=== PATIENT | female | born 1935 | race Caucasian/White ===

== ENCOUNTER 2016-10-01 14:12 | Emergency (ER) | payer MEDICARE ==
[2016-10-01 14:44] VITALS: BP 142/53
--- NOTE | 2016-10-01 15:15 | Cat Scan Report ---
FINAL REPORT EXAM: CT HEAD/BRAIN WO CON HISTORY: headache fall TECHNIQUE: CT of the Head without IV contrast. PRIORS: None currently available. FINDINGS: There is no evidence for acute ischemia. There is no hemorrhage. There is no midline shift. There is no hydrocephalus. There is no mass. Age appropriate davenport-white matter attenuation is noted. There is no calvarial fracture. The temporal bones demonstrate aerated mastoid air cells. The middle ears appear unremarkable. Paranasal sinuses are unremarkable. Globes are intact. IMPRESSION: No acute intracranial findings.
--- NOTE | 2016-10-01 15:21 | Emergency Department Report ---
HPI - General Chief Complaint: Head Injury Time Seen by Provider: 10/01/16 14:40 - HPI HPI: Chief complaint: Tripped and fell, head, chest, knee and hand pain HPI: Patient is an 81-year-old [place] female who tripped over a step fell forward hitting her right knee, her right hand, anterior chest and her forehead. Patient denies loss of consciousness or syncope. Patient's chest pain started after she fell and hurts to palpation and breathing. Patient is not short of breath. Patient does not have any abdominal pain patient is ambulatory. Mode of arrival: EMS Source: Patient and patient's granddaughter Began: Occurred just prior to admission Duration: Pain is continuous Context: See above Quality: Sharp Severity: 8 out of 10 Improved with: Nothing Worsened with: Palpation and movement Associated signs and symptoms: Bruising to the right knee hematoma to the left forehead ED Past Medical Hx - Past Medical History Hx Hypertension: Yes - Surgical History Additional Surgical History: Pacemaker - Medications Home Medications: Home Medications Medication Instructions Recorded Confirmed Last Taken Type traMADol [Ultram 50 MG tab] 50 mg PO Q6HR PRN #20 tablet 10/01/16 Unknown Rx ED Review of Systems ROS: Stated complaint: FALL Other details as noted in HPI Comment: All other systems reviewed and negative Physical Exam - Physical Exam Vital Signs: Vital Signs 10/01/16 10/01/16 14:43 14:46 Pulse Rate 87 Respiratory 18 18 Rate Blood Pressure 142/53 [Left] O2 Sat by Pulse 99 98 Oximetry Physical Exam: GENERAL: The patient is well-developed well-nourished . HEENT: Normocephalic. Small hematoma to the left forehead. Extraocular motions are intact. Patient has moist mucous membranes. NECK: Supple. No meningitic signs are noted. There is no adenopathy noted. Neck nontender CHEST/LUNGS: Clear to auscultation. There is no respiratory distress noted. Anterior chest wall left ribs tender to palpation without crepitus or deformity. HEART/CARDIOVASCULAR: Regular. There is no tachycardia. There is no gallop rub or murmur. ABDOMEN: Abdomen is soft, nontender. Patient has normal bowel sounds. There is no abdominal distention. SKIN: There is no rash. There is no edema. There is no diaphoresis. NEURO: The patient is awake, alert, and oriented. The patient is cooperative. The patient has no focal neurologic deficits. The patient has normal speech. MUSCULOSKELETAL: Right knee prepatellar ecchymosis with small abrasion. Full range of motion to the right knee. Right lateral hand with swelling and tenderness. Full range of motion neurovascular intact. ED Course Vital Signs 10/01/16 10/01/16 14:43 14:46 Pulse Rate 87 Respiratory 18 18 Rate Blood Pressure 142/53 [Left] O2 Sat by Pulse 99 98 Oximetry - Reevaluation(s) Reevaluation #1: 10/01/16 15:21 Patient and family are unclear about her medical history. EMS thought that she was on a blood thinner. Family denies and states she is on blood pressure medications. ED Medical Decision Making - Lab Data Result diagrams: 10/01/16 15:20 10/01/16 15:20 Laboratory Tests 10/01/16 15:20 PT 12.9 INR 0.98 APTT 37.9 H Laboratory Tests 10/01/16 15:20 Troponin T < 0.010 - EKG Data -: EKG Interpreted by Me (electronic atrial pacemaker) Rate: normal - EKG Data When compared to previous EKG there are: previous EKG unavailable - Radiology Data Radiology results: report reviewed (CT of the head and C-spine show no acute process.) interpreted by me: X-ray of patient's right hand, chest x-ray and right knee show no acute fractures. Patient has multiple old healed fractures to the right ribs. Critical care attestation.: If time is entered above; I have spent that time in minutes in the direct care of this critically ill patient, excluding procedure time. ED Disposition Clinical Impression: Minor head injury Qualifiers: Encounter type: initial encounter Qualified Code(s): S00.90XA - Unspecified superficial injury of unspecified part of head, initial encounter Contusion of right knee Qualifiers: Encounter type: initial encounter Qualified Code(s): S80.01XA - Contusion of right knee, initial encounter Contusion of right hand Qualifiers: Encounter type: initial encounter Qualified Code(s): S60.221A - Contusion of right hand, initial encounter Traumatic hematoma of forehead Qualifiers: Encounter type: initial encounter Qualified Code(s): S00.83XA - Contusion of other part of head, initial encounter Chest wall contusion Qualifiers: Encounter type: initial encounter Laterality: unspecified laterality Qualified Code(s): S20.219A - Contusion of unspecified front wall of thorax, initial encounter Disposition: DISCHARGED TO HOME OR SELFCARE Is pt being admited?: No Does the pt Need Aspirin: No Condition: Stable Instructions: Contusion in Adults (ED) Prescriptions: traMADol [Ultram 50 MG tab] 50 mg PO Q6HR PRN #20 tablet PRN Reason: Pain Referrals: PRIMARY CARE,MD [Primary Care Provider] - 3-5 Days Time of Disposition: 16:09
--- NOTE | 2016-10-01 15:21 | Cat Scan Report ---
FINAL REPORT EXAM: CT CERVICAL SPINE WO CON HISTORY: neck pain fall TECHNIQUE: CT of the Cervical Spine without IV contrast. Coronal and sagittal reformatted images were provided. PRIORS: None currently available. FINDINGS: There is no fracture. There is no subluxation. There is no atlantooccipital dislocation. C1-C2: Ynxj-ho-mvgzqnwa arthrosis. Mild prominence of the transverse ligament. There may be some ryrj-mi-djlg articulation. Mild basilar invagination. Mild spinal canal narrowing. Remaining cervical levels do not demonstrate significant canal or foraminal narrowing. Prevertebral soft tissue structures are unremarkable. Heterogenous thyroid gland. Nodules not excluded but evaluation with thyroid ultrasound recommended if clinically indicated. Partially imaged esophagus demonstrates air-fluid level which could represent gastroesophageal reflux. Vascular calcifications. IMPRESSION: No acute fracture.
[2016-10-01 15:33] LABS: Basophils % (Auto) 0.7 % (0.0-1.8); Eosinophils % (Auto) 2.3 % (0.0-4.3); Hematocrit 41.1 % (30.3-42.9); Hemoglobin 13.7 gm/dl (10.1-14.3); Mean Corpuscular HGB Conc 33 % (30-34); Mean Corpuscular Hemoglobin 31 pg (28-32); Mean Corpuscular Volume 93 fl (79-97); Platelet Count 179 K/mm3 (140-440); Red Blood Count 4.44 M/mm3 (3.65-5.03); Red Cell Distribution Width 14.7 % (13.2-15.2); White Blood Count 7.8 K/mm3 (4.5-11.0)
[2016-10-01 15:45] LABS: INR 0.98 (0.87-1.13)
[2016-10-01 15:46] LABS: Partial Thromboplastin Time 37.9 Sec. (24.2-36.6)
[2016-10-01 15:50] LABS: Calcium 8.8 mg/dL (8.4-10.2); Chloride 98.2 mmol/L (98-107); Potassium 4.1 mmol/L (3.6-5.0)
--- NOTE | 2016-10-02 08:37 | XRay Report ---
Right knee: The bones are relatively well-mineralized. There is good alignment and preservation of the knee joint spaces and articular margins. No joint effusion or focal swelling. Scattered mild vascular calcification noted. Impression: No acute findings. RIGHT HAND: The bony architecture is intact. Bony alignment is normal. No soft tissue abnormalities are seen. The joint spaces appear preserved. IMPRESSION: Normal right hand.
--- NOTE | 2016-10-02 09:25 | XRay Report ---
RIGHT HAND, THREE VIEWS HISTORY: Right hand pain after fall. FINDINGS: Mild osteopenia. No acute osseous injury or dislocation is appreciated. There are mild diffuse osteoarthritic changes. The soft tissues are unremarkable. IMPRESSION: No acute injury is identified.
== END 2016-10-01 17:03 | disposition home or self-care (01) ==
LOC: ED 14:12
DX: S09.90XA Unspecified injury of head, initial encounter (principal); S80.01XA Contusion of right knee, initial encounter; S60.221A Contusion of right hand, initial encounter; S00.83XA Contusion of other part of head, initial encounter; S20.219A Contusion of unspecified front wall of thorax, initial encounter; I10 Essential (primary) hypertension; Z95.0 Presence of cardiac pacemaker; W01.198A Fall on same level from slipping, tripping and stumbling with subsequent striking against other object, initial encounter; Y93.89 Activity, other specified; Y99.8 Other external cause status; Y92.89 Other specified places as the place of occurrence of the external cause
CPT/HCPCS: 36415; 70450; 71020; 72125; 80048; 84484; 85025; 85610; 85730; 93005; 93010

== ENCOUNTER 2017-11-24 11:36 | Inpatient (IN) | payer MEDICAID, MEDICARE ==
[2017-11-24 12:22] LABS: Basophils % (Auto) 0.3 % (0.0-1.8); Eosinophils # (Auto) 0.1 K/mm3 (0.0-0.4); Eosinophils % (Auto) 1.4 % (0.0-4.3); Hematocrit 38.9 % (30.3-42.9); Hemoglobin 13.4 gm/dl (10.1-14.3); Lymphocytes # (Auto) 1.3 K/mm3 (1.2-5.4); Lymphocytes % (Auto) 15.9 % (13.4-35.0); Mean Corpuscular HGB Conc 35 % (30-34); Mean Corpuscular Hemoglobin 32 pg (28-32); Mean Corpuscular Volume 92 fl (79-97); Monocytes # (Auto) 0.7 K/mm3 (0.0-0.8); Monocytes % (Auto) 8.5 % (0.0-7.3); Platelet Count 210 K/mm3 (140-440); Red Blood Count 4.25 M/mm3 (3.65-5.03); Red Cell Distribution Width 15.1 % (13.2-15.2)
--- NOTE | 2017-11-24 12:29 | Emergency Department Report ---
HPI - General Chief Complaint: Dizziness Time Seen by Provider: 11/24/17 11:55 - HPI HPI: 82-year-old female presents to the emergency department with her, daughter at bedside, from home with complaint of a few days of shortness of breath, "her back feels cold" with some discomfort, generalized dizziness and weakness, blurry vision and some chest tightness. She has a history of HTN and has a pacemaker. She has a customer account coordinator that they believe is [facility]. She did not take anything for her symptoms prior to presentation. No recent travel or sick contacts at home. She is not a tobacco smoker and denies any illicit drug usage. ED Past Medical Hx - Past Medical History Hx Hypertension: Yes - Surgical History Additional Surgical History: Pacemaker - Social History Smoking Status: Never Smoker Substance Use Type: None - Medications Home Medications: Home Medications Medication Instructions Recorded Confirmed Last Taken Type traMADol [Ultram 50 MG tab] 50 mg PO Q6HR PRN #20 tablet 10/01/16 Unknown Rx ED Review of Systems ROS: Stated complaint: BACK PAIN Other details as noted in HPI Comment: All other systems reviewed and negative Constitutional: denies: chills, fever Eyes: vision change (blurry vision). denies: eye pain, eye discharge ENT: denies: ear pain, throat pain Respiratory: shortness of breath. denies: wheezing Cardiovascular: edema. denies: palpitations Gastrointestinal: denies: abdominal pain, nausea, diarrhea Genitourinary: denies: urgency, dysuria, discharge Musculoskeletal: denies: back pain, joint swelling, arthralgia Skin: denies: rash, lesions Neurological: weakness. denies: headache Physical Exam - Physical Exam Vital Signs: Vital Signs 11/24/17 11/24/17 11/24/17 11:50 12:10 12:11 Temperature 98.0 F 98.0 F Pulse Rate 64 63 Respiratory 18 20 20 Rate Blood Pressure 127/52 Blood Pressure 127/52 [Left] O2 Sat by Pulse 93 93 Oximetry Physical Exam: GENERAL: The patient is well-developed well-nourished. HENT: Normocephalic. Atraumatic. Patient has moist mucous membranes. EYES: Extraocular motions are intact. Pupils equal reactive to light bilaterally. No nystagmus. NECK: Supple. Trachea is midline. CHEST/LUNGS: Clear to auscultation. There is no respiratory distress noted. HEART/CARDIOVASCULAR: Regular. There is no tachycardia. There is no murmur. ABDOMEN: Abdomen is soft, nontender. Patient has normal bowel sounds. There is no abdominal distention. SKIN: Skin is warm and dry. NEURO: The patient is awake, alert. The patient is cooperative. The patient has no focal neurologic deficits. The patient has normal speech. MUSCULOSKELETAL: There is no tenderness or deformity. There is no evidence of acute injury. ED Course Vital Signs 11/24/17 11/24/17 11/24/17 11:50 12:10 12:11 Temperature 98.0 F 98.0 F Pulse Rate 64 63 Respiratory 18 20 20 Rate Blood Pressure 127/52 Blood Pressure 127/52 [Left] O2 Sat by Pulse 93 93 Oximetry ED Medical Decision Making - Lab Data Result diagrams: 11/24/17 12:15 11/24/17 17:12 - EKG Data -: EKG Interpreted by Me - EKG Data When compared to previous EKG there are: no significant change Interpretation: unchanged when compared t, other (atrial paced complexes, prolonged CO interval) - Radiology Data Radiology results: report reviewed, image reviewed interpreted by me: Chest x-ray does not show any acute process. There are no pleural effusions, obvious pneumonia and there is no pneumothorax. CT HEAD WITHOUT CONTRAST: 11/24/17 11:36:00 CLINICAL: Dizziness. TECHNIQUE: 2.5-mm noncontrast scans. COMPARISON:10/01/16 FINDINGS: The frontal lobe sulci are disproportionately large compared to the rest of the brain but this is unchanged compared to the prior exam.No suspicious hypodensity. Bilateral globus pallidus nine calcifications. No mass or mass effect. No hemorrhage, edema or extra-axial collection. The sinuses are clear. Normal orbits and soft tissues. The calvarium and skull base are intact. IMPRESSION: No acute change. Stable frontal lobe cortical atrophy. Transcribed By: REF Dictated By: FREEDOM JONES MD Electronically Authenticated By: FREEDOM JONES MD Signed Date/Time: 11/24/17 9765 - Medical Decision Making Patient came in with some non-specific complaints of dizziness, lightheadedness and generalized weakness. She also has some blurry vision, chest tightness. EKG is paced and does not show any ST elevation [place]. Her labs show a hyponatremia is significant at 115 and may be the source of many of her symptoms. Patient was started on IV fluid resuscitation. CT of the head did not show any bleed, shift, mass or any acute process. Patient will be admitted to the hospital for further evaluation and treatment is benign except for admission by the hospitalist, Dr. Davis. - Differential Diagnosis [place], CVA, TIA, Hyponatremia, hypoglycemia Critical Care Time: No Critical care attestation.: If time is entered above; I have spent that time in minutes in the direct care of this critically ill patient, excluding procedure time. ED Disposition Clinical Impression: Hyponatremia syndrome, Dizziness, Electrolyte disorder Hypothyroid Qualifiers: Hypothyroidism type: acquired Qualified Code(s): E03.9 - Hypothyroidism, unspecified Disposition: 09 OP ADMIT IP TO THIS HOSP Is pt being admited?: Yes Condition: Fair Time of Disposition: 18:46
[2017-11-24 12:33] LABS: INR 0.96 (0.87-1.13)
[2017-11-24 12:34] LABS: Partial Thromboplastin Time 34.6 Sec. (24.2-36.6)
[2017-11-24 12:55] LABS: Alanine Aminotransferase 23 units/L (7-56); Albumin 3.8 g/dL (3.9-5); BUN/Creatinine Ratio 22; Blood Urea Nitrogen 22 mg/dL (7-17); Calcium 8.4 mg/dL (8.4-10.2); Hemolysis Index 5
--- NOTE | 2017-11-24 13:00 | Cat Scan Report ---
CT HEAD WITHOUT CONTRAST: 11/24/17 11:36:00 CLINICAL: Dizziness. TECHNIQUE: 2.5-mm noncontrast scans. COMPARISON:10/01/16 FINDINGS: The frontal lobe sulci are disproportionately large compared to the rest of the brain but this is unchanged compared to the prior exam.No suspicious hypodensity. Bilateral globus pallidus nine calcifications. No mass or mass effect. No hemorrhage, edema or extra-axial collection. The sinuses are clear. Normal orbits and soft tissues. The calvarium and skull base are intact. IMPRESSION: No acute change. Stable frontal lobe cortical atrophy.
--- NOTE | 2017-11-24 13:18 | History and Physical Report ---
History of Present Illness Chief complaint: She feels weak, and short of breath History of present illness: 82 YO Female with HTN, Cardiomyopathy S/P Pacemaker placement presents to ED for evaluation. Pt is unable to speak Lithuanian, but her daughter is at bedside, and serves as staffing coordinator. As per daughter, the patient has experienced shortness of breath, bilateral leg swelling, and generalized weakness over the past 3 days with persistent symptoms over the same time frame. Pt acknowledges Orthopnea/PND. Pt denies fever, chills, CP, Palpitations, NVD, productive cough , BRBPR, unintentional weight loss, night sweats, trauma, syncope, recent ill contacts, prolonged travel/immobility, individual/family history of DVT/PE. Pt seen and evaluated in ED and found to have symptoms consistent with Acute CHF Decompensation with concomitant respiratory failure. Pt admitted to telemetry, cardiology consulted in ED. Past History Past Medical History: hypertension Past Surgical History: Other (Pacemaker) Social history: . denies: smoking, alcohol abuse, prescription drug abuse Family history: hypertension Medications and Allergies Home Medications Medication Instructions Recorded Confirmed Last Taken Type traMADol [Ultram 50 MG tab] 50 mg PO Q6HR PRN #20 tablet 10/01/16 Unknown Rx Review of Systems Constitutional: no weight loss, no weight gain, no fever, no chills Ears, nose, mouth and throat: no ear pain, no ear discharge, no tinnitis, no decreased hearing, no nose pain, no nasal congestion Breasts: no change in shape, no swelling, no mass Cardiovascular: orthopnea, shortness of breath, paroxysmal nocturnal dyspnea, high blood pressure, leg edema, no chest pain, no palpitations, no rapid/ irregular heart beat, no syncope Respiratory: no cough, no cough with sputum, no excessive sputum, no hemoptysis Gastrointestinal: no abdominal pain, no nausea, no vomiting, no diarrhea Genitourinary Female: no pelvic pain, no flank pain, no menorrhagia, no dysuria , no urinary frequency, no urgency Rectal: no pain, no incontinence, no bleeding Musculoskeletal: no neck stiffness, no neck pain, no shooting arm pain, no arm numbness/tingling, no low back pain, no shooting leg pain, no leg numbness/ tingling Integumentary: no rash, no pruritis, no redness, no sores, no wounds, no jaundice, no boils Neurological: no transient paralysis, no paralysis, no weakness, no parathesias , no numbness, no tingling, no seizures, no syncope Psychiatric: no anxiety, no memory loss, no change in sleep habits, no insomnia , no hypersomnia, no change in appetite, no change in libido, no suicidal ideation Endocrine: no cold intolerance, no heat intolerance, no polyphagia, no excessive thirst, no polydipsia, no polyuria, no nocturia, no excessive sweating Hematologic/Lymphatic: no easy bruising, no easy bleeding, no lymphadenopathy, no lymphedema Allergic/Immunologic: no urticaria, no allergic rhinitis, no wheezing Exam - Constitutional Vitals: Temp Pulse Resp BP Pulse Ox 98.0 F 63 20 127/52 93 11/24/17 12:10 11/24/17 12:10 11/24/17 12:11 11/24/17 12:10 11/24/17 12:10 General appearance: Present: mild distress - EENT Eyes: Present: PERRL ENT: hearing intact, clear oral mucosa - Neck Neck: Present: supple, normal ROM - Respiratory Respiratory effort: labored Respiratory: bilateral: diminished, rales - Cardiovascular Heart Sounds: Present: S1 & S2. Absent: rub, click - Extremities Extremities: pulses symmetrical, No edema Extremity abnormal: edema Peripheral Pulses: within normal limits - Abdominal General gastrointestinal: Present: soft, non-tender, non-distended, normal bowel sounds Female genitourinary: Present: normal - Integumentary Integumentary: Present: clear, warm, dry - Musculoskeletal Musculoskeletal: generalized weakness - Psychiatric Psychiatric: appropriate mood/affect, intact judgment & insight - Neurologic Neurologic: CNII-XII intact, moves all extremities Results - Labs CBC & Chem 7: 11/24/17 12:15 11/24/17 12:15 Labs: Abnormal lab results 11/24/17 11/24/17 11/24/17 Range/Units 12:15 12:15 12:15 MCHC 35 H (30-34) % Boyd % (Auto) 8.5 H (0.0-7.3) % Seg Neutrophils % 73.9 H (40.0-70.0) % Sodium 115 L* (137-145) mmol/L Potassium 5.1 H (3.6-5.0) mmol/L Chloride 82.3 L (98-107) mmol/L Carbon Dioxide 18 L (22-30) mmol/L BUN 22 H (7-17) mg/dL Glucose 179 H (65-100) mg/dL NT-Pro-B Natriuret Pep 940.9 H (0-900) pg/mL Albumin 3.8 L (3.9-5) g/dL TSH 6.440 H (0.270-4.200) mlU/mL Assessment and Plan - Patient Problems (1) CHF (congestive heart failure) Current Visit: Yes Status: Acute Qualifiers: Heart failure type: systolic Heart failure chronicity: acute Qualified Code(s): I50.21 - Acute systolic (congestive) heart failure Plan to address problem: Admit to telemetry, Strict I/O, monitor uop q shift, daily weight, D dimer, Chest X ray, supplemental oxygen, diuresis, afterload reduction, cardiology consulted in ED, Echo. (2) Hypothyroidism Current Visit: Yes Status: Acute Qualifiers: Hypothyroidism type: acquired Qualified Code(s): E03.9 - Hypothyroidism, unspecified Plan to address problem: Synthroid therapy, first dose given in ED, (3) Metabolic acidosis Current Visit: Yes Status: Acute Plan to address problem: IVF resuscitation therapy, repeat bmp (4) Acute respiratory failure Current Visit: Yes Status: Acute Qualifiers: Respiratory failure complication: hypoxia Qualified Code(s): J96.01 - Acute respiratory failure with hypoxia Plan to address problem: Supplemental oxygen, Chest X ray, nebulizer therapy, incentive spirometry, pulmonary toilet, (5) DVT prophylaxis Current Visit: Yes Status: Acute
[2017-11-24] MEDS ORDERED: SODIUM CHLORIDE FLUSH SYRINGE 10 ML IV PRN (13:20)
[2017-11-24] MEDS ORDERED: TYLENOL PO PRN (13:20)
[2017-11-24] MEDS ORDERED: PROVENTIL IH PRN (13:20)
[2017-11-24] MEDS ORDERED: ZOFRAN IV PRN (13:20)
--- NOTE | 2017-11-24 13:20 | XRay Report ---
AP CHEST : 11/24/17 11:36:00 CLINICAL: Chest pain. COMPARISON:10/01/16 FINDINGS: Stable cardiomegaly with pacer leads in heart.Normal pulmonary vessels. The lungs are normally expanded and clear. Blunting costophrenic angles are unchanged compared to the prior exam. Old right rib fractures are unchanged. IMPRESSION: Mild cardiomegaly but no CHF. No pneumonia.
[2017-11-24] MEDS: LASIX IV SCH (18:42)
[2017-11-24] MEDS: SODIUM CHLORIDE FLUSH SYRINGE 10 ML IV SCH (21:32)
[2017-11-25] MEDS: LASIX IV SCH ×2 (05:50→17:17)
[2017-11-25] MEDS: SYNTHROID 112 MCG, SYNTHROID 25 MCG PO SCH (05:59)
[2017-11-25] MEDS: SODIUM CHLORIDE FLUSH SYRINGE 10 ML IV SCH ×2 (10:38→21:32)
--- NOTE | 2017-11-25 11:40 | Progress Note ---
Assessment and Plan Assessment and plan: Hyponatremia. Etiology is unknown. Consider hypertonic saline versus Sam[place]a. Patient does have a history of CHF. Nephrology consultation. Chest pain. We will plan for Lexiscan in a.m. Hypertension. Resume at hypertensive medications. Cardiomyopathy status post pacemaker. Continue per cardiology. History of CHF. Follow-up echocardiogram. Appears compensated. Patient with only mildly elevated BNP and negative chest x-ray Hypothyroidism. Resume Synthroid. Consider increasing dose given the elevated TSH. History Interval history: No new issues overnight. Hospitalist Physical - Constitutional Vitals: Temp Pulse Resp BP Pulse Ox 98 F 70 20 100/68 93 11/25/17 05:04 11/25/17 08:35 11/25/17 05:04 11/25/17 05:04 11/25/17 05:04 General appearance: Present: no acute distress - EENT Eyes: Present: PERRL, EOM intact ENT: hearing intact, clear oral mucosa, dentition normal - Neck Neck: Present: supple, normal ROM - Respiratory Respiratory effort: normal Respiratory: bilateral: CTA - Cardiovascular Rhythm: regular Heart Sounds: Present: S1 & S2. Absent: gallop, rub - Extremities Extremities: no ischemia, No edema, Full ROM - Abdominal General gastrointestinal: soft, non-tender, non-distended, normal bowel sounds - Integumentary Integumentary: Present: clear, warm, dry - Neurologic Neurologic: CNII-XII intact, moves all extremities Results - Labs CBC & Chem 7: 11/24/17 12:15 11/24/17 17:12 Labs: Laboratory Last Values WBC 8.4 K/mm3 (4.5-11.0) 11/24/17 12:15 RBC 4.25 M/mm3 (3.65-5.03) 11/24/17 12:15 Hgb 13.4 gm/dl (10.1-14.3) 11/24/17 12:15 Hct 38.9 % (30.3-42.9) 11/24/17 12:15 MCV 92 fl (79-97) 11/24/17 12:15 MCH 32 pg (28-32) 11/24/17 12:15 MCHC 35 % (30-34) H 11/24/17 12:15 RDW 15.1 % (13.2-15.2) 11/24/17 12:15 Plt Count 210 K/mm3 (140-440) 11/24/17 12:15 Lymph % (Auto) 15.9 % (13.4-35.0) 11/24/17 12:15 Murray % (Auto) 8.5 % (0.0-7.3) H 11/24/17 12:15 Eos % (Auto) 1.4 % (0.0-4.3) 11/24/17 12:15 Baso % (Auto) 0.3 % (0.0-1.8) 11/24/17 12:15 Lymph # 1.3 K/mm3 (1.2-5.4) 11/24/17 12:15 Murray # 0.7 K/mm3 (0.0-0.8) 11/24/17 12:15 Eos # 0.1 K/mm3 (0.0-0.4) 11/24/17 12:15 Baso # 0.0 K/mm3 (0.0-0.1) 11/24/17 12:15 Seg Neutrophils % 73.9 % (40.0-70.0) H 11/24/17 12:15 Seg Neutrophils # 6.2 K/mm3 (1.8-7.7) 11/24/17 12:15 PT 13.3 Sec. (12.2-14.9) 11/24/17 12:15 INR 0.96 (0.87-1.13) 11/24/17 12:15 APTT 34.6 Sec. (24.2-36.6) 11/24/17 12:15 D-Dimer 200.14 ng/mlDDU (0-234) 11/24/17 12:15 Sodium 115 mmol/L (137-145) L* 11/24/17 17:12 Potassium 5.1 mmol/L (3.6-5.0) H 11/24/17 12:15 Chloride 82.3 mmol/L (98-107) L 11/24/17 12:15 Carbon Dioxide 18 mmol/L (22-30) L 11/24/17 12:15 Anion Gap 20 mmol/L 11/24/17 12:15 BUN 22 mg/dL (7-17) H 11/24/17 12:15 Creatinine 1.0 mg/dL (0.7-1.2) 11/24/17 12:15 Estimated GFR 53 ml/min 11/24/17 12:15 BUN/Creatinine Ratio 22 % 11/24/17 12:15 Glucose 179 mg/dL (65-100) H 11/24/17 12:15 Calcium 8.4 mg/dL (8.4-10.2) 11/24/17 12:15 Total Bilirubin 0.50 mg/dL (0.1-1.2) 11/24/17 12:15 AST 26 units/L (5-40) 11/24/17 12:15 ALT 23 units/L (7-56) 11/24/17 12:15 Alkaline Phosphatase 95 units/L (35-129) 11/24/17 12:15 Troponin T < 0.010 ng/mL (0.00-0.029) 11/24/17 17:07 NT-Pro-B Natriuret Pep 940.9 pg/mL (0-900) H 11/24/17 12:15 Total Protein 7.4 g/dL (6.3-8.2) 11/24/17 12:15 Albumin 3.8 g/dL (3.9-5) L 11/24/17 12:15 Albumin/Globulin Ratio 1.1 % 11/24/17 12:15 TSH 6.440 mlU/mL (0.270-4.200) H 11/24/17 12:15
--- NOTE | 2017-11-25 13:40 | Consultation ---
History of Present Illness Consult date: 11/25/17 Consult reason: shortness of breath History of present illness: The patient is an 82-year-old woman who presented to the hospital with constitutional symptoms of dizziness, weakness, shortness of breath, and found on laboratory exam with severe hyponatremia, sodium 115. Previous laboratory exam a year ago showed her sodium was 134. Cardiac consultation was requested for evaluation of her shortness of breath and possible "CHF". Patient is currently comfortable on bedrest on the telemetry floor, denied chest pain, palpitations or edema. Cardiac history is notable for a poorly documented, remote history of coronary artery disease. She does have a dual- chamber pacemaker in situ. ECG on this presentation is a normal sinus rhythm with first-degree AV block, otherwise normal ECG. Chest x-ray reveals a normal cardiac silhouette, blunting of the costophrenic angles, but no interstitial edema and no heart failure. Past History Past Medical History: hypertension Past Surgical History: Other (Pacemaker) Social history: . denies: smoking, alcohol abuse, prescription drug abuse Family history: hypertension Medications and Allergies Allergies Allergy/AdvReac Type Severity Reaction Status Date / Time No Known Allergies Allergy Unverified 11/24/17 14:13 Home Medications Medication Instructions Recorded Confirmed Last Taken Type Amiodarone [Cordarone 200 MG TAB] 200 mg PO DAILY 11/25/17 11/25/17 Unknown History AtorvaSTATin [Lipitor] 40 mg PO QHS 11/25/17 11/25/17 Unknown History Carvedilol [Coreg] 25 mg PO DAILY 11/25/17 11/25/17 Unknown History Dabigatran [Pradaxa] 150 mg PO BID 11/25/17 11/25/17 Unknown History Levothyroxine [Synthroid] 50 mcg PO QAM 11/25/17 11/25/17 Unknown History Meclizine [Antivert] 12.5 mg PO TID PRN 11/25/17 11/25/17 Unknown History NIFEdipine [Nifedipine ER] 60 mg PO DAILY 11/25/17 11/25/17 Unknown History Valsartan [Diovan] 320 mg PO QDAY 11/25/17 11/25/17 Unknown History cloNIDine [Catapres] 0.1 mg PO PRN PRN 11/25/17 11/25/17 Unknown History Active Meds: Active Medications Acetaminophen (Tylenol) 650 mg PO Q4H PRN PRN Reason: Pain MILD(1-3)/Fever >100.5/SEO Albuterol (Proventil) 2.5 mg IH Q4H PRN PRN Reason: Shortness Of Breath Furosemide (Lasix) 20 mg IV BID@0600,1800 [facility] Last Admin: 11/25/17 05:50 Dose: 20 mg Levothyroxine Sodium 112 mcg/ (Levothyroxine Sodium 25 mcg) 137 mcg PO DAILY@ 0600 [facility] Last Admin: 11/25/17 05:59 Dose: 137 mcg Ondansetron HCl (Zofran) 4 mg IV Q8H PRN PRN Reason: Nausea And Vomiting Sodium Chloride (Sodium Chloride Flush Syringe 10 Ml) 10 ml IV BID [facility] Last Admin: 11/25/17 10:38 Dose: 10 ml Sodium Chloride (Sodium Chloride Flush Syringe 10 Ml) 10 ml IV PRN PRN PRN Reason: LINE FLUSH Review of Systems Cardiovascular: shortness of breath, no chest pain, no orthopnea, no palpitations, no rapid/irregular heart beat, no edema, no syncope, no lightheadedness Physical Examination Vital Signs Temp Pulse Resp BP Pulse Ox 98.0 F 64 18 127/52 93 11/24/17 11:50 11/24/17 11:50 11/24/17 11:50 11/24/17 11:50 11/24/17 11:50 General appearance: no acute distress HEENT: Positive: PERRL Neck: Positive: neck supple Cardiac: Positive: Reg Rate and Rhythm Lungs: Positive: clear to auscultation Neuro: Positive: Grossly Intact Abdomen: Positive: Soft Female genitourinary: deferred Skin: Positive: Clear Extremities: Absent: edema Results 11/24/17 12:15 11/24/17 17:12 Comprehensive Metabolic Panel 11/24/17 Range/Units 17:12 Sodium 115 L* (137-145) mmol/L EKG interpretations - Telemetry EKG Rhythm: Sinus Rhythm Assessment and Plan - Patient Problems (1) Hyponatremia Current Visit: Yes Status: Acute Plan to address problem: Patient presented with constitutional symptoms associated with severe hyponatremia, sodium 115. We will defer workup of the presenting complaint to internal medicine and nephrology. There are no significant cardiac issues at this time that warrant further cardiac workup. We will follow intermittently.
--- NOTE | 2017-11-25 13:46 | Consultation ---
History of Present Illness - Reason for Consult Consult date: 11/25/17 hyponatremia Requesting physician: MARIA FERNANDA SENIOR - History of Present Illness 82-year-old female presents to the emergency department with her, daughter at bedside, from home with complaint of a few days of shortness of breath, "her back feels cold" with some discomfort, generalized dizziness and weakness, blurry vision and some chest tightness. She has a history of HTN and has a pacemaker. She has a color maker dyer that they believe is [facility]. She did not take anything for her symptoms prior to presentation. No recent travel or sick contacts at home. She is not a tobacco smoker and denies any illicit drug usage. She does admit to drinking a lot of water. Also complains of feeling somewhat weak Past History Past Medical History: hypertension Past Surgical History: Other (Pacemaker) Social history: . denies: smoking, alcohol abuse, prescription drug abuse Family history: hypertension Medications and Allergies Allergies Allergy/AdvReac Type Severity Reaction Status Date / Time No Known Allergies Allergy Unverified 11/24/17 14:13 Home Medications Medication Instructions Recorded Confirmed Last Taken Type Amiodarone [Cordarone 200 MG TAB] 200 mg PO DAILY 11/25/17 11/25/17 Unknown History AtorvaSTATin [Lipitor] 40 mg PO QHS 11/25/17 11/25/17 Unknown History Carvedilol [Coreg] 25 mg PO DAILY 11/25/17 11/25/17 Unknown History Dabigatran [Pradaxa] 150 mg PO BID 11/25/17 11/25/17 Unknown History Levothyroxine [Synthroid] 50 mcg PO QAM 11/25/17 11/25/17 Unknown History Meclizine [Antivert] 12.5 mg PO TID PRN 11/25/17 11/25/17 Unknown History NIFEdipine [Nifedipine ER] 60 mg PO DAILY 11/25/17 11/25/17 Unknown History Valsartan [Diovan] 320 mg PO QDAY 11/25/17 11/25/17 Unknown History cloNIDine [Catapres] 0.1 mg PO PRN PRN 11/25/17 11/25/17 Unknown History Active Meds: Active Medications Acetaminophen (Tylenol) 650 mg PO Q4H PRN PRN Reason: Pain MILD(1-3)/Fever >100.5/SEO Albuterol (Proventil) 2.5 mg IH Q4H PRN PRN Reason: Shortness Of Breath Furosemide (Lasix) 20 mg IV BID@0600,1800 [facility] Last Admin: 11/25/17 05:50 Dose: 20 mg Levothyroxine Sodium 112 mcg/ (Levothyroxine Sodium 25 mcg) 137 mcg PO DAILY@ 0600 [facility] Last Admin: 11/25/17 05:59 Dose: 137 mcg Ondansetron HCl (Zofran) 4 mg IV Q8H PRN PRN Reason: Nausea And Vomiting Sodium Chloride (Sodium Chloride Flush Syringe 10 Ml) 10 ml IV BID [facility] Last Admin: 11/25/17 10:38 Dose: 10 ml Sodium Chloride (Sodium Chloride Flush Syringe 10 Ml) 10 ml IV PRN PRN PRN Reason: LINE FLUSH Review of Systems All systems: negative (except as noted above) Exam - Vital Signs Vital signs: Vital Signs Temp Pulse Resp BP Pulse Ox 98.0 F 64 18 127/52 93 11/24/17 11:50 11/24/17 11:50 11/24/17 11:50 11/24/17 11:50 11/24/17 11:50 - General Appearance General appearance: well-developed, well-nourished, appears stated age EENT: PERRL, mucous membranes moist Neck: Present: neck supple, trachea midline. Absent: JVD/HJR, Masses Respiratory: Clear to Ascultation Heart: regular, normal heart rate, S1S2, no murmurs Gastrointestinal: Present: normal, normoactive bowel sounds Integumentary: no rash, other (trace edema ) Results - Lab Results 11/24/17 12:15 11/24/17 17:12 Most recent lab results Calcium 8.4 mg/dL (8.4-10.2) 11/24/17 12:15 Assessment and Plan Impression * Severe hyponatremia * Hypertension * Coronary artery disease * Hyperlipidemia * Hypothyroidism Recommendations * Shall do hyponatremia workup, including TSH, uric acid as well as urine sodium and urine osmolality * Administer 3% saline at 30 mL an hour for 10 hours * Restrict free water intake * She may need Samsca as well * Monitor her serum sodium closely * Discussed with patient's daughter at bedside * Thank you very much for the consultation. Shall follow along with you
[2017-11-25] MEDS ORDERED: NACL 3% 500 ML IV ONE (13:48)
[2017-11-25 18:19] LABS: Calcium 8.3 mg/dL (8.4-10.2)
--- NOTE | 2017-11-25 21:35 | Event Note ---
Date: 11/25/17 repeat Na 130 . Stop 3% saline . Spoke with patient's nurse . Monitor serum sodium closely . Patient is currently asymptomatic
[2017-11-26 01:39] LABS: Calcium 7.8 mg/dL (8.4-10.2)
[2017-11-26 05:43] LABS: Basophils % (Auto) 0.5 % (0.0-1.8); Eosinophils # (Auto) 0.1 K/mm3 (0.0-0.4); Eosinophils % (Auto) 2.1 % (0.0-4.3); Hematocrit 38.5 % (30.3-42.9); Hemoglobin 13.3 gm/dl (10.1-14.3); Lymphocytes # (Auto) 1.4 K/mm3 (1.2-5.4); Lymphocytes % (Auto) 20.5 % (13.4-35.0); Mean Corpuscular HGB Conc 35 % (30-34); Mean Corpuscular Hemoglobin 32 pg (28-32); Mean Corpuscular Volume 93 fl (79-97); Monocytes # (Auto) 1.1 K/mm3 (0.0-0.8); Monocytes % (Auto) 15.9 % (0.0-7.3); Platelet Count 221 K/mm3 (140-440); Red Blood Count 4.16 M/mm3 (3.65-5.03); Red Cell Distribution Width 15.9 % (13.2-15.2)
[2017-11-26] MEDS: LASIX IV SCH ×2 (05:46→18:04)
[2017-11-26] MEDS: SYNTHROID 112 MCG, SYNTHROID 25 MCG PO SCH (05:46)
[2017-11-26 06:05] LABS: BUN/Creatinine Ratio 20; Blood Urea Nitrogen 16 mg/dL (7-17); Calcium 8.1 mg/dL (8.4-10.2); Hemolysis Index 182
[2017-11-26 08:38] LABS: Calcium 8.6 mg/dL (8.4-10.2)
[2017-11-26] MEDS ORDERED: LEXISCAN IV ONE ×2 (10:14→10:18)
[2017-11-26] MEDS ORDERED: ANTIVERT PO PRN (11:29)
[2017-11-26] MEDS ORDERED: CATAPRES PO PRN (11:29)
--- NOTE | 2017-11-26 11:31 | Progress Note ---
Assessment and Plan Assessment and plan: Hyponatremia. Etiology is unknown. Consider hypertonic saline versus Samsca. Patient does have a history of CHF. Nephrology consultation. Chest pain. Await Lexiscan results. Hypertension. Resume at hypertensive medications. Cardiomyopathy status post pacemaker. Continue per cardiology. History of CHF. Follow-up echocardiogram. Appears compensated. Patient with only mildly elevated BNP and negative chest x-ray. Cardiology feels that there are no significant cardiac issues at this time to warrant treatment or workup. Hypothyroidism. Continue Synthroid. Disposition. Likely discharge in a.m. History Interval history: No new issues overnight. Hospitalist Physical - Constitutional Vitals: Temp Pulse Resp BP Pulse Ox 97.8 F 77 18 139/79 98 11/26/17 08:07 11/26/17 10:00 11/26/17 10:00 11/26/17 08:07 11/26/17 10:00 General appearance: Present: no acute distress - EENT Eyes: Present: PERRL, EOM intact ENT: hearing intact, clear oral mucosa, dentition normal - Neck Neck: Present: supple, normal ROM - Respiratory Respiratory effort: normal Respiratory: bilateral: CTA - Cardiovascular Rhythm: regular Heart Sounds: Present: S1 & S2. Absent: gallop, rub - Extremities Extremities: no ischemia, No edema, Full ROM - Abdominal General gastrointestinal: soft, non-tender, non-distended, normal bowel sounds - Integumentary Integumentary: Present: clear, warm, dry - Neurologic Neurologic: CNII-XII intact, moves all extremities Results - Labs CBC & Chem 7: 11/26/17 04:59 11/26/17 07:25 Labs: Laboratory Last Values WBC 6.8 K/mm3 (4.5-11.0) 11/26/17 04:59 RBC 4.16 M/mm3 (3.65-5.03) 11/26/17 04:59 Hgb 13.3 gm/dl (10.1-14.3) 11/26/17 04:59 Hct 38.5 % (30.3-42.9) 11/26/17 04:59 MCV 93 fl (79-97) 11/26/17 04:59 MCH 32 pg (28-32) 11/26/17 04:59 MCHC 35 % (30-34) H 11/26/17 04:59 RDW 15.9 % (13.2-15.2) H 11/26/17 04:59 Plt Count 221 K/mm3 (140-440) 11/26/17 04:59 Lymph % (Auto) 20.5 % (13.4-35.0) 11/26/17 04:59 Scott % (Auto) 15.9 % (0.0-7.3) H 11/26/17 04:59 Eos % (Auto) 2.1 % (0.0-4.3) 11/26/17 04:59 Baso % (Auto) 0.5 % (0.0-1.8) 11/26/17 04:59 Lymph # 1.4 K/mm3 (1.2-5.4) 11/26/17 04:59 Scott # 1.1 K/mm3 (0.0-0.8) H 11/26/17 04:59 Eos # 0.1 K/mm3 (0.0-0.4) 11/26/17 04:59 Baso # 0.0 K/mm3 (0.0-0.1) 11/26/17 04:59 Seg Neutrophils % 61.0 % (40.0-70.0) 11/26/17 04:59 Seg Neutrophils # 4.2 K/mm3 (1.8-7.7) 11/26/17 04:59 PT 13.3 Sec. (12.2-14.9) 11/24/17 12:15 INR 0.96 (0.87-1.13) 11/24/17 12:15 APTT 34.6 Sec. (24.2-36.6) 11/24/17 12:15 D-Dimer 200.14 ng/mlDDU (0-234) 11/24/17 12:15 Sodium 134 mmol/L (137-145) L 11/26/17 07:25 Potassium 4.8 mmol/L (3.6-5.0) 11/26/17 07:25 Chloride 96.0 mmol/L (98-107) L 11/26/17 07:25 Carbon Dioxide 26 mmol/L (22-30) 11/26/17 07:25 Anion Gap 17 mmol/L 11/26/17 07:25 BUN 15 mg/dL (7-17) 11/26/17 07:25 Creatinine 0.9 mg/dL (0.7-1.2) 11/26/17 07:25 Estimated GFR 60 ml/min 11/26/17 07:25 BUN/Creatinine Ratio 17 % 11/26/17 07:25 Glucose 111 mg/dL (65-100) H 11/26/17 07:25 POC Glucose 151 (70-105) H 11/25/17 11:54 Osmolality 272 Mosm/kg 11/25/17 14:05 Uric Acid 4.6 mg/dL (3.5-7.6) 11/25/17 14:05 Calcium 8.6 mg/dL (8.4-10.2) 11/26/17 07:25 Total Bilirubin 0.50 mg/dL (0.1-1.2) 11/24/17 12:15 AST 26 units/L (5-40) 11/24/17 12:15 ALT 23 units/L (7-56) 11/24/17 12:15 Alkaline Phosphatase 95 units/L (35-129) 11/24/17 12:15 Troponin T < 0.010 ng/mL (0.00-0.029) 11/24/17 17:07 NT-Pro-B Natriuret Pep 940.9 pg/mL (0-900) H 11/24/17 12:15 Total Protein 7.4 g/dL (6.3-8.2) 11/24/17 12:15 Albumin 3.8 g/dL (3.9-5) L 11/24/17 12:15 Albumin/Globulin Ratio 1.1 % 11/24/17 12:15 TSH 6.910 mlU/mL (0.270-4.200) H 11/25/17 14:05
--- NOTE | 2017-11-26 11:37 | Progress Note ---
Assessment and Plan Impression * Severe hyponatremia * Hypertension * Coronary artery disease * Hyperlipidemia * Hypothyroidism Recommendations * Shall do hyponatremia workup, including TSH, uric acid as well as urine sodium and urine osmolality * off 3% * Restrict free water intake * daily lytes * Na 134 today * continue diuresis * She may need Samsca as well * Monitor her serum sodium closely * Discussed with patient's daughter at bedside * Subjective Date of service: 11/26/17 Principal diagnosis: hyponatremia Interval history: resting well in bed today Objective - Exam Narrative Exam: General appearance: well-developed, well-nourished, appears stated age EENT: PERRL, mucous membranes moist Neck: Present: neck supple, trachea midline. Absent: JVD/HJR, Masses Respiratory: Clear to Ascultation Heart: regular, normal heart rate, S1S2, no murmurs Gastrointestinal: Present: normal, normoactive bowel sounds Integumentary: no rash, other (trace edema ) - Vital Signs Vital signs: Vital Signs - 12hr 11/26/17 11/26/17 11/26/17 04:12 08:07 10:00 Temperature 97.5 F L 97.8 F Pulse Rate 77 107 H Pulse Rate [ 76 Apical] Pulse Rate [ 74 From Monitor] Pulse Rate [ 77 Right Radial] Respiratory 18 20 18 Rate Blood Pressure 121/60 139/79 O2 Sat by Pulse 94 93 98 Oximetry - Lab 11/26/17 04:59 11/26/17 07:25 Most recent lab results Calcium 8.6 mg/dL (8.4-10.2) 11/26/17 07:25
[2017-11-26] MEDS: SODIUM CHLORIDE FLUSH SYRINGE 10 ML IV SCH ×2 (12:40→21:32)
[2017-11-26 13:12] LABS: Osmolality,Urine 238 Mosm/kg
[2017-11-26 13:54] LABS: BUN/Creatinine Ratio 16; Blood Urea Nitrogen 13 mg/dL (7-17); Calcium 8.8 mg/dL (8.4-10.2); Hemolysis Index 367
--- NOTE | 2017-11-26 14:24 | Progress Note ---
Assessment and Plan - Patient Problems (1) Hyponatremia Current Visit: Yes Status: Acute Plan to address problem: Patient presented with constitutional symptoms associated with severe hyponatremia, sodium 115. Management per nephrology. There are no significant cardiac issues at this time, a Persantine thallium stress test done today was normal. Subjective Date of service: 11/26/17 Principal diagnosis: hyponatremia Interval history: Patient looks and feels better, hyponatremia corrected, currently 132. She underwent a Persantine thallium stress test today, normal study. Objective Vital Signs Temp Pulse Pulse Pulse Pulse Resp BP 11/26/17 12:25 98.2 F 107 H 20 134/69 11/26/17 10:00 76 74 77 18 11/26/17 08:07 97.8 F 107 H 20 139/79 11/26/17 04:12 97.5 F L 77 18 121/60 11/25/17 23:09 98.5 F 70 18 136/58 11/25/17 22:00 11/25/17 19:57 97.5 F L 80 18 124/50 11/25/17 18:48 11/25/17 16:52 75 Pulse Ox 11/26/17 12:25 94 11/26/17 10:00 98 11/26/17 08:07 93 11/26/17 04:12 94 11/25/17 23:09 95 11/25/17 22:00 93 11/25/17 19:57 93 11/25/17 18:48 100 11/25/17 16:52 93 - Physical Examination General: No Apparent Distress HEENT: Positive: PERRL Neck: Positive: neck supple, trachea midline. Negative: JVD/HJR, Masses Cardiac: Positive: Reg Rate and Rhythm Lungs: Positive: clear to auscultation Neuro: Positive: Grossly Intact Abdomen: Positive: Soft Skin: Positive: Clear Extremities: Absent: edema - Labs and Meds CBC 11/26/17 Range/Units 04:59 WBC 6.8 (4.5-11.0) K/mm3 RBC 4.16 (3.65-5.03) M/mm3 Hgb 13.3 (10.1-14.3) gm/dl Hct 38.5 (30.3-42.9) % Plt Count 221 (140-440) K/mm3 Lymph # 1.4 (1.2-5.4) K/mm3 [place] # 1.1 H (0.0-0.8) K/mm3 Eos # 0.1 (0.0-0.4) K/mm3 Baso # 0.0 (0.0-0.1) K/mm3 Comprehensive Metabolic Panel 11/25/17 11/26/17 11/26/17 Range/Units 17:54 01:06 04:59 Sodium 130 L D 135 L 137 (137-145) mmol/L Potassium 4.2 4.5 5.7 H D (3.6-5.0) mmol/L Chloride 92.7 L 101.2 100.9 (98-107) mmol/L Carbon Dioxide 24 22 23 (22-30) mmol/L BUN 18 H 17 16 (7-17) mg/dL Creatinine 1.0 0.9 0.8 (0.7-1.2) mg/dL Glucose 148 H 174 H 91 (65-100) mg/dL Calcium 8.3 L 7.8 L 8.1 L (8.4-10.2) mg/dL 11/26/17 11/26/17 Range/Units 07:25 12:48 Sodium 134 L 132 L (137-145) mmol/L Potassium 4.8 5.6 H (3.6-5.0) mmol/L Chloride 96.0 L 95.2 L (98-107) mmol/L Carbon Dioxide 26 24 (22-30) mmol/L BUN 15 13 (7-17) mg/dL Creatinine 0.9 0.8 (0.7-1.2) mg/dL Glucose 111 H 170 H (65-100) mg/dL Calcium 8.6 8.8 (8.4-10.2) mg/dL
[2017-11-26] MEDS: PRADAXA PO SCH (21:32)
--- NOTE | 2017-11-26 23:52 | Treadmill Report ---
THALLIUM STRESS TEST LEFT VENTRICLE: Left ventricular chamber size is within normal. Perfusion study demonstrated homogeneous uptake of the tracer in all segments, no significant perfusion defects identified. Gated analysis demonstrates normal left ventricular systolic function, ejection fraction 59%. CONCLUSION: Normal myocardial perfusion study. JOB# [id number] CA/NTS
[2017-11-27] MEDS: SYNTHROID 112 MCG, SYNTHROID 25 MCG PO SCH (05:48)
[2017-11-27] MEDS: LASIX IV SCH (05:49)
[2017-11-27] MEDS ORDERED: SYNTHROID PO SCH (06:00)
[2017-11-27 06:42] LABS: Calcium 8.4 mg/dL (8.4-10.2)
--- NOTE | 2017-11-27 09:05 | Discharge Summary ---
Providers - Providers Date of Admission: 11/24/17 13:20 Date of discharge: 11/27/17 Attending physician: MARIA FERNANDA SENIOR 11/24/17 13:22 Consult to Physician [CONS] Routine Comment: Consulting Provider: CHANCE BULLOCK Physician Instructions: Reason For Exam: chf 11/25/17 08:45 Consult to Physician [CONS] Routine Comment: Consulting Provider: IRVING DELGADILLO Physician Instructions: Reason For Exam: hyponatremia 11/26/17 08:24 Physical Therapy Evaluation and Treat [CONS] Routine Comment: Reason For Exam: gen weakness Primary care physician: AGNES GOMEZ Hospitalization Reason for admission: sob, dizziness Condition: Fair Hospital course: This is an 82-year-old female who presented to the hospital with constitutional symptoms of dizziness, weakness, shortness of breath and found to have laboratory values of sodium 115/severe hyponatremia. Patient had a previous cardiac history of a poorly documented coronary artery disease with a history of a dual-chamber pacemaker in situ. EKG on admission revealed normal sinus rhythm with first-degree AV block. Chest x-ray revealed a normal cardiac silhouette with blunting of costophrenic angles but no interstitial edema or heart failure. Patient underwent stress thallium that was found to be negative for ischemia. Cardiology saw the patient in consultation and felt that there were no significant cardiac issues to warrant further cardiac workup. Nephrology saw the patient in consultation and recommended hypertonic saline. Hyponatremia workup was completed including TSH, uric acid, urine sodium and urine osmolality. Urine osmolality and sodium were within normal limits. TSH was mildly elevated but the patient is on Synthroid which will be increased at the time of discharge. The patient was seen by physical therapy who recommended home health PT. The patient's sodium returned to normal limits and she was felt to have received maximal hospital benefit for discharge. Dedicated discharge time 34 minutes. Disposition: - TO HOME OR SELFCARE Time spent for discharge: 34 - Discharge Diagnoses (1) Acute respiratory failure Status: Acute Qualifiers: Respiratory failure complication: hypoxia Qualified Code(s): J96.01 - Acute respiratory failure with hypoxia (2) Dizziness Status: Acute (3) Hyponatremia Status: Acute (4) Hypothyroidism Status: Acute Qualifiers: Hypothyroidism type: acquired Qualified Code(s): E03.9 - Hypothyroidism, unspecified Core Measure Documentation - Palliative Care Palliative Care/ Comfort Measures: Not Applicable - Core Measures Any of the following diagnoses?: none Exam - Constitutional Vitals: Temp Pulse Resp BP Pulse Ox 98.1 F 70 20 147/61 96 11/27/17 05:04 11/27/17 06:00 11/27/17 05:04 11/27/17 05:04 11/27/17 05:05 General appearance: Present: no acute distress, well-nourished - EENT Eyes: Present: PERRL ENT: hearing intact, clear oral mucosa - Neck Neck: Present: supple, normal ROM - Respiratory Respiratory effort: normal Respiratory: bilateral: CTA - Cardiovascular Heart Sounds: Present: S1 & S2. Absent: rub, click - Extremities Extremities: pulses symmetrical, No edema Peripheral Pulses: within normal limits - Abdominal General gastrointestinal: Present: soft, non-tender, non-distended, normal bowel sounds Female genitourinary: Present: normal - Integumentary Integumentary: Present: clear, warm, dry - Musculoskeletal Musculoskeletal: gait normal, strength equal bilaterally - Psychiatric Psychiatric: appropriate mood/affect, intact judgment & insight - Neurologic Neurologic: CNII-XII intact, moves all extremities Plan Activity: no restrictions Weight Bearing Status: Full Weight Bearing Diet: regular Special Instructions: home health RN Follow up with: AGNES GOMEZ MD [Primary Care Provider] - 7 Days IRVING DELGADILLO MD [Staff Physician] - 7 Days CHANCE BULLOCK MD [Staff Physician] - 7 Days Prescriptions: Amiodarone [Cordarone 200 MG TAB] 200 mg PO DAILY #30 tablet AtorvaSTATin [Lipitor] 40 mg PO QHS #30 tablet Carvedilol [Coreg] 25 mg PO DAILY #30 tablet cloNIDine [Catapres] 0.1 mg PO PRN PRN #30 tablet PRN Reason: Blood Pressure Dabigatran [Pradaxa] 150 mg PO BID #60 capsule Levothyroxine Sodium [Synthroid] 125 mcg PO DAILY #30 tablet Meclizine [Antivert] 12.5 mg PO TID PRN #90 tablet PRN Reason: Vertigo NIFEdipine [Nifedipine ER] 60 mg PO DAILY #30 tab.er.[id number] Valsartan [Diovan] 320 mg PO QDAY #30 tablet
[2017-11-27] MEDS ORDERED: DIOVAN PO SCH (10:00)
[2017-11-27] MEDS ORDERED: COREG PO SCH (10:00)
[2017-11-27] MEDS ORDERED: PROCARDIA XL PO SCH (10:00)
[2017-11-27] MEDS ORDERED: CORDARONE PO SCH (10:00)
--- NOTE | 2017-11-27 10:19 | Progress Note ---
Assessment and Plan Impression * Severe hyponatremia * Hypertension * Coronary artery disease * Hyperlipidemia * Hypothyroidism Recommendations * abnormal TSH * off 3% * Restrict free water intake * daily lytes * Na 134 today * continue diuresis * Monitor her serum sodium closely * Discussed with patient's daughter at bedside * ivis allen dc from renal standpoint, follow up in office in one week Subjective Date of service: 11/27/17 Principal diagnosis: hyponatremia Interval history: resting well in bed today Objective - Exam Narrative Exam: General appearance: well-developed, well-nourished, appears stated age EENT: PERRL, mucous membranes moist Neck: Present: neck supple, trachea midline. Absent: JVD/HJR, Masses Respiratory: Clear to Ascultation Heart: regular, normal heart rate, S1S2, no murmurs Gastrointestinal: Present: normal, normoactive bowel sounds Integumentary: no rash, other (trace edema ) - Vital Signs Vital signs: Vital Signs - 12hr 11/27/17 11/27/17 11/27/17 00:13 00:26 00:28 Temperature 97.8 F Pulse Rate 70 69 Respiratory 18 Rate Blood Pressure Blood Pressure 141/67 [Left] O2 Sat by Pulse 95 93 95 Oximetry 11/27/17 11/27/17 11/27/17 05:04 05:05 06:00 Temperature 98.1 F Pulse Rate 85 85 70 Respiratory 20 Rate Blood Pressure 147/61 Blood Pressure [Left] O2 Sat by Pulse 96 96 Oximetry 11/27/17 11/27/17 08:27 08:32 Temperature 97.6 F 98.0 F Pulse Rate 74 82 Respiratory 20 20 Rate Blood Pressure 138/70 124/86 Blood Pressure [Left] O2 Sat by Pulse 97 98 Oximetry - Lab 11/26/17 04:59 11/27/17 05:31 Most recent lab results Calcium 8.4 mg/dL (8.4-10.2) 11/27/17 05:31 Urine Sodium 90 mmol/L 11/26/17 12:20
--- NOTE | 2017-11-27 10:55 | Progress Note ---
Assessment and Plan Severe hyponatremia Hypertension Paroxysmal Afib on pradaxa for oral anticoagulation. on coreg and amiodarone for suppression. Hx of SSS s/p PPM Normal persantine thallium stress test this admission. Normal LV systolic function, EF 60-65% on echocardiogram. Plan: Conservative cardiac management. Stable, cardiac patel. Once discharge, patient will f/u with [facility] within 5-7 days. Subjective Date of service: 11/27/17 Principal diagnosis: hyponatremia Interval history: Patient is resting in bed and appears comfortable. Translation by family member at bedside reports the patient is feeling better. Patient denies chest pain and shortness of breath. Objective Vital Signs Temp Pulse Resp BP BP Pulse Ox 11/27/17 08:32 98.0 F 82 20 124/86 98 11/27/17 08:27 97.6 F 74 20 138/70 97 11/27/17 06:00 70 11/27/17 05:05 85 96 11/27/17 05:04 98.1 F 85 20 147/61 96 11/27/17 00:28 97.8 F 69 18 141/67 95 11/27/17 00:26 93 11/27/17 00:13 70 95 11/26/17 20:19 98.2 F 80 18 158/70 95 11/26/17 20:03 79 95 11/26/17 16:57 98 H 11/26/17 16:35 98.0 F 85 20 134/72 97 11/26/17 12:25 98.2 F 107 H 20 134/69 94 11/26/17 10:57 107 H 133/67 11/26/17 10:56 121 H 119/70 11/26/17 10:55 119 H 126/70 11/26/17 10:54 115 H 127/68 11/26/17 10:53 117 H 121/69 11/26/17 10:52 114 H 126/92 - Physical Examination General: No Apparent Distress HEENT: Positive: PERRL Neck: Positive: trachea midline Cardiac: Positive: Reg Rate and Rhythm Lungs: Positive: Decreased Breath Sounds Neuro: Positive: Grossly Intact Extremities: Absent: edema - Labs and Meds Comprehensive Metabolic Panel 11/26/17 11/27/17 Range/Units 12:48 05:31 Sodium 132 L 134 L (137-145) mmol/L Potassium 5.6 H 4.5 (3.6-5.0) mmol/L Chloride 95.2 L 95.2 L (98-107) mmol/L Carbon Dioxide 24 25 (22-30) mmol/L BUN 13 19 H (7-17) mg/dL Creatinine 0.8 1.0 (0.7-1.2) mg/dL Glucose 170 H 100 (65-100) mg/dL Calcium 8.8 8.4 (8.4-10.2) mg/dL
[2017-11-27] MEDS: PRADAXA PO SCH (11:17)
[2017-11-27 12:55] VITALS: BP 153/64
== END 2017-11-27 14:30 | disposition home health service (06) | DRG 189 ==
LOC: ED 11:36 → 4A 13:20
PROVIDERS: ADMIT Internal Medicine; ATTEND Hospitalist
DX: J96.00 Acute respiratory failure, unspecified whether with hypoxia or hypercapnia (principal); E87.1 Hypo-osmolality and hyponatremia; I42.9 Cardiomyopathy, unspecified; I50.9 Heart failure, unspecified; I25.10 Atherosclerotic heart disease of native coronary artery without angina pectoris; E03.9 Hypothyroidism, unspecified; E87.8 Other disorders of electrolyte and fluid balance, not elsewhere classified; I11.0 Hypertensive heart disease with heart failure; E87.2 Acidosis; I44.0 Atrioventricular block, first degree; E78.5 Hyperlipidemia, unspecified; Z95.0 Presence of cardiac pacemaker; Z82.49 Family history of ischemic heart disease and other diseases of the circulatory system
CPT/HCPCS: 36415; 70450; 71045; 78452; 80048; 80053; 82533; 82962; 83880; 83930; 83935; 84295; 84300; 84443; 84484; 84550; 85025; 85379; 85610; 85730; 93005; 93010; 93017; 93306; A9270-GY; A9502; G8978-GP; G8979-GP; G8980-GP; J1940; J2785

== ENCOUNTER 2018-04-30 10:38 | Emergency (ER) | payer MEDICARE ==
[2018-04-30] MEDS ORDERED: CATAPRES PO ONE (16:07)
--- NOTE | 2018-04-30 16:11 | Emergency Department Report ---
ED General Adult HPI - General Chief complaint: High BP Stated complaint: HIGH BP Time Seen by Provider: 04/30/18 15:45 Source: patient Mode of arrival: Ambulatory Limitations: No Limitations - History of Present Illness Initial comments: Mrs. Jung is a 82 yo female who presents with elevated blood pressure from PCP' s office. She had routine appt with Dr. Edy Chaney this morning. SBP > 200 mm Hg. She was referred to ED. She took only one of 4 prescribed medications today. She normally takes carvediol, nifedipine, valsartan and clonidine PRN. She told triage nurse that her vision was dark. However, she currently denies any visual disturbance. She denies headache, chest pain or dyspnea. - Related Data Home Medications Medication Instructions Recorded Confirmed Last Taken Fluticasone [Flonase] 200 mcg IN DAILY 04/30/18 04/30/18 Unknown Levothyroxine [Synthroid] 50 mcg PO DAILY 04/30/18 04/30/18 Unknown Meclizine [Antivert] 12.5 mg PO DAILY PRN 04/30/18 04/30/18 Unknown Omeprazole 20 mg PO DAILY 04/30/18 04/30/18 Unknown Valsartan [Diovan] 320 mg PO DAILY 04/30/18 04/30/18 Unknown Previous Rx's Medication Instructions Recorded Last Taken Type Amiodarone [Cordarone 200 MG TAB] 200 mg PO DAILY #30 tablet 11/27/17 Unknown Rx AtorvaSTATin [Lipitor] 40 mg PO QHS #30 tablet 11/27/17 Unknown Rx Carvedilol [Coreg] 25 mg PO DAILY #30 tablet 11/27/17 Unknown Rx Dabigatran [Pradaxa] 150 mg PO BID #60 capsule 11/27/17 Unknown Rx NIFEdipine [Nifedipine ER] 60 mg PO DAILY #30 tab.er.24 11/27/17 Unknown Rx Allergies Allergy/AdvReac Type Severity Reaction Status Date / Time No Known Allergies Allergy Verified 04/30/18 10:44 ED Review of Systems ROS: Stated complaint: HIGH BP Other details as noted in HPI Comment: All other systems reviewed and negative Constitutional: denies: fever Respiratory: denies: cough Cardiovascular: denies: chest pain ED Past Medical Hx - Past Medical History Hx Hypertension: Yes Hx Heart Attack/AMI: Yes - Surgical History Additional Surgical History: Pacemaker - Social History Smoking Status: Never Smoker Substance Use Type: None - Medications Home Medications: Home Medications Medication Instructions Recorded Confirmed Last Taken Type Amiodarone [Cordarone 200 MG TAB] 200 mg PO DAILY #30 tablet 11/27/17 04/30/18 Unknown Rx AtorvaSTATin [Lipitor] 40 mg PO QHS #30 tablet 11/27/17 04/30/18 Unknown Rx Carvedilol [Coreg] 25 mg PO DAILY #30 tablet 11/27/17 04/30/18 Unknown Rx Dabigatran [Pradaxa] 150 mg PO BID #60 capsule 11/27/17 04/30/18 Unknown Rx NIFEdipine [Nifedipine ER] 60 mg PO DAILY #30 tab.er.24 11/27/17 04/30/18 Unknown Rx Fluticasone [Flonase] 200 mcg IN DAILY 04/30/18 04/30/18 Unknown History Levothyroxine [Synthroid] 50 mcg PO DAILY 04/30/18 04/30/18 Unknown History Meclizine [Antivert] 12.5 mg PO DAILY PRN 04/30/18 04/30/18 Unknown History Omeprazole 20 mg PO DAILY 04/30/18 04/30/18 Unknown History Valsartan [Diovan] 320 mg PO DAILY 04/30/18 04/30/18 Unknown History ED Physical Exam - General Limitations: Language Barrier (son provided Vietmamese interpretation) General appearance: alert, in no apparent distress - Head Head exam: Present: atraumatic, normocephalic - Eye Eye exam: Present: normal appearance, PERRL, EOMI - ENT ENT exam: Present: mucous membranes moist - Neck Neck exam: Present: normal inspection. Absent: tenderness, meningismus - Respiratory Respiratory exam: Present: normal lung sounds bilaterally. Absent: respiratory distress, wheezes, rales, rhonchi - Cardiovascular Cardiovascular Exam: Present: regular rate, normal rhythm, normal heart sounds. Absent: systolic murmur, diastolic murmur, rubs, gallop - GI/Abdominal GI/Abdominal exam: Present: soft, normal bowel sounds. Absent: distended, tenderness, guarding, rebound - Extremities Exam Extremities exam: Present: normal inspection - Back Exam Back exam: Present: normal inspection - Neurological Exam Neurological exam: Present: alert, oriented X3, normal gait. Absent: motor sensory deficit - Psychiatric Psychiatric exam: Present: normal affect, normal mood - Skin Skin exam: Present: warm, dry, intact, normal color. Absent: rash ED Course Vital Signs 04/30/18 04/30/18 04/30/18 10:44 11:44 15:34 Temperature 97.8 F Pulse Rate 75 74 Respiratory 16 16 Rate Blood Pressure 133/92 Blood Pressure 217/86 259/84 [Right] O2 Sat by Pulse 97 95 Oximetry 04/30/18 04/30/18 04/30/18 16:10 17:40 17:54 Temperature Pulse Rate 95 H 79 Respiratory 16 Rate Blood Pressure 232/78 229/91 Blood Pressure 194/90 [Right] O2 Sat by Pulse 95 Oximetry 04/30/18 18:56 Temperature Pulse Rate 76 Respiratory 16 Rate Blood Pressure Blood Pressure 146/56 [Right] O2 Sat by Pulse 99 Oximetry ED Medical Decision Making - Lab Data Result diagrams: 04/30/18 16:10 04/30/18 16:10 Laboratory Results - last 24 hr 04/30/18 04/30/18 16:10 16:10 WBC 7.1 RBC 4.54 Hgb 14.5 H Hct 42.9 MCV 95 MCH 32 MCHC 34 RDW 15.1 Plt Count 150 Lymph % (Auto) 22.7 [place] % (Auto) 11.9 H Eos % (Auto) 1.9 Baso % (Auto) 0.7 Lymph # 1.6 [place] # 0.9 H Eos # 0.1 Baso # 0.0 Seg Neutrophils % 62.8 Seg Neutrophils # 4.5 Sodium 142 Potassium 3.9 Chloride 103.4 Carbon Dioxide 24 Anion Gap 19 BUN 13 Creatinine 0.7 Estimated GFR > 60 BUN/Creatinine Ratio 19 Glucose 98 Calcium 9.3 Vital Signs - 24 hr 04/30/18 04/30/18 04/30/18 10:44 11:44 15:34 Temperature 97.8 F Pulse Rate 75 74 Respiratory 16 16 Rate Blood Pressure 133/92 Blood Pressure 217/86 259/84 [Right] O2 Sat by Pulse 97 95 Oximetry 04/30/18 04/30/18 04/30/18 16:10 17:40 17:54 Temperature Pulse Rate 95 H 79 Respiratory 16 Rate Blood Pressure 232/78 229/91 Blood Pressure 194/90 [Right] O2 Sat by Pulse 95 Oximetry 04/30/18 18:56 Temperature Pulse Rate 76 Respiratory 16 Rate Blood Pressure Blood Pressure 146/56 [Right] O2 Sat by Pulse 99 Oximetry - Medical Decision Making Hypertensive Urgency: son explains that her blood pressure has been this high on several occasions. The very high blood pressure readings are managed with clonidine as needed. However, son also explained that patient takes her antihypertensive medications throughout the day. She does not take them all at once. Ms. Jung is currently symptom free. AFter medications in ED, BP 152/66. She desires to be discharged home. I did consider possibility of TIA. However, famiy and patient truly desired to be discharged home. Daughter stated that yesterday she had lightheadedness and blurry vision. I encouraged taking BP meds all at once. Daugther explained that she has become forgetful. SHe may have not taken her medications. Dc'd home in improved stable condition. Critical Care Time: Yes Critical care attestation.: If time is entered above; I have spent that time in minutes in the direct care of this critically ill patient, excluding procedure time. 40 minutes of critical care time excluding procedures were used in the care of the patient. Patient required multiple assessments and interventions. I reviewed labs. I reviewed EMR and previous medical records. I spoke with several family members. ED Disposition Clinical Impression: Hypertensive urgency, malignant Disposition: DC-01 TO HOME OR SELFCARE Is pt being admited?: No Does the pt Need Aspirin: No Condition: Stable Instructions: Hypertension (ED), Hypertensive Crisis (ED) Referrals: EDY CHANEY MD [Staff Physician] - 3-5 Days Time of Disposition: 19:19
[2018-04-30 16:33] LABS: Basophils % (Auto) 0.7 % (0.0-1.8); Eosinophils # (Auto) 0.1 K/mm3 (0.0-0.4); Eosinophils % (Auto) 1.9 % (0.0-4.3); Hematocrit 42.9 % (30.3-42.9); Hemoglobin 14.5 gm/dl (10.1-14.3); Lymphocytes # (Auto) 1.6 K/mm3 (1.2-5.4); Lymphocytes % (Auto) 22.7 % (13.4-35.0); Mean Corpuscular HGB Conc 34 % (30-34); Mean Corpuscular Hemoglobin 32 pg (28-32); Mean Corpuscular Volume 95 fl (79-97); Monocytes # (Auto) 0.9 K/mm3 (0.0-0.8); Monocytes % (Auto) 11.9 % (0.0-7.3); Platelet Count 150 K/mm3 (140-440); Red Blood Count 4.54 M/mm3 (3.65-5.03); Red Cell Distribution Width 15.1 % (13.2-15.2)
[2018-04-30 17:13] LABS: BUN/Creatinine Ratio 19; Blood Urea Nitrogen 13 mg/dL (7-17); Calcium 9.3 mg/dL (8.4-10.2); Hemolysis Index 12
[2018-04-30] MEDS ORDERED: NORMODYNE IV ONE (17:28)
[2018-04-30 18:56] VITALS: BP 146/56
== END 2018-04-30 19:47 | disposition home or self-care (01) ==
LOC: ED 10:38
DX: I16.0 Hypertensive urgency (principal); I25.2 Old myocardial infarction; I10 Essential (primary) hypertension
CPT/HCPCS: 36415; 80048; 85025; 93005; 93010; 96374

== ENCOUNTER 2018-11-14 15:04 | Emergency (ER) | payer MEDICARE ==
--- NOTE | 2018-11-14 15:41 | Emergency Department Report ---
Chief Complaint: High BP Stated Complaint: HBP Time Seen by Provider: 11/14/18 15:36 - HPI History of Present Illness: Pt has home health nurse took BP, and it was 200/81 felt dizzy no CP, no SOB pt has a hx of HI, HTN, and pacemaker placement pt is on nifedipine, amiodarone, carvedilol, clonidine .1mg pt states she only took the amiodarone, carvedilol, and meclizine today took clonidine last night MSE screening note: Focused history and physical exam performed. ED Disposition for MSE Condition: Stable
[2018-11-14 16:14] LABS: Basophils % (Auto) 0.5 % (0.0-1.8); Eosinophils # (Auto) 0.1 K/mm3 (0.0-0.4); Eosinophils % (Auto) 2.6 % (0.0-4.3); Hematocrit 40.2 % (30.3-42.9); Hemoglobin 13.4 gm/dl (10.1-14.3); Lymphocytes % (Auto) 18.9 % (13.4-35.0); Mean Corpuscular HGB Conc 33 % (30-34); Mean Corpuscular Volume 95 fl (79-97); Monocytes # (Auto) 0.6 K/mm3 (0.0-0.8); Monocytes % (Auto) 11.2 % (0.0-7.3); Platelet Count 176 K/mm3 (140-440); Red Blood Count 4.24 M/mm3 (3.65-5.03); Red Cell Distribution Width 15.5 % (13.2-15.2)
[2018-11-14] MEDS ORDERED: APRESOLINE IV ONE (16:16)
[2018-11-14 16:23] LABS: INR 0.98 (0.87-1.13)
[2018-11-14 16:24] LABS: Partial Thromboplastin Time 24.7 Sec. (24.2-36.6)
[2018-11-14 16:32] LABS: Alanine Aminotransferase 43 units/L (7-56); BUN/Creatinine Ratio 26; Blood Urea Nitrogen 18 mg/dL (7-17); Calcium 8.7 mg/dL (8.4-10.2); Hemolysis Index 11
--- NOTE | 2018-11-14 16:52 | Emergency Department Report ---
ED General Adult HPI - General Chief complaint: High BP Stated complaint: HBP Time Seen by Provider: 11/14/18 15:36 Source: family Mode of arrival: Wheelchair Limitations: Language Barrier - History of Present Illness Initial comments: Patient is a thin 83-year-old [place] female who has a past medical history of DC hypertension she does have a pacemaker who is presenting with elevated blood pressure. Patient has some just mild dizziness but denies any chest pain shortness of breath or focal neurological deficit. Patient blood pressure was 236/83. Patient states that she has taken all of her blood pressure medicines today so for her Catapres. Severity scale (0 -10): 0 Associated Symptoms: denies: confusion, chest pain, cough, diaphoresis, fever/chills, headaches, loss of appetite, malaise, nausea/vomiting, rash, seizure, shortness of breath, syncope, weakness - Related Data Home Medications Medication Instructions Recorded Confirmed Last Taken Fluticasone [Flonase] 200 mcg IN DAILY 04/30/18 04/30/18 Unknown Levothyroxine [Synthroid] 50 mcg PO DAILY 04/30/18 04/30/18 Unknown Meclizine [Antivert] 12.5 mg PO DAILY PRN 04/30/18 04/30/18 Unknown Omeprazole 20 mg PO DAILY 04/30/18 04/30/18 Unknown Valsartan [Diovan] 320 mg PO DAILY 04/30/18 04/30/18 Unknown Previous Rx's Medication Instructions Recorded Last Taken Type Amiodarone [Cordarone 200 MG TAB] 200 mg PO DAILY #30 tablet 11/27/17 Unknown Rx AtorvaSTATin [Lipitor] 40 mg PO QHS #30 tablet 11/27/17 Unknown Rx Carvedilol [Coreg] 25 mg PO DAILY #30 tablet 11/27/17 Unknown Rx Dabigatran [Pradaxa] 150 mg PO BID #60 capsule 11/27/17 Unknown Rx NIFEdipine [Nifedipine ER] 60 mg PO DAILY #30 tab.er.24 11/27/17 Unknown Rx Allergies Allergy/AdvReac Type Severity Reaction Status Date / Time No Known Allergies Allergy Verified 11/14/18 15:28 ED Review of Systems ROS: Stated complaint: HBP Other details as noted in HPI Comment: All other systems reviewed and negative ED Past Medical Hx - Past Medical History Previous Medical History?: Yes Hx Hypertension: Yes Hx Heart Attack/AMI: Yes Additional medical history: Vertigo - Surgical History Past Surgical History?: Yes Additional Surgical History: Pacemaker - Social History Smoking Status: Never Smoker Substance Use Type: None - Medications Home Medications: Home Medications Medication Instructions Recorded Confirmed Last Taken Type Amiodarone [Cordarone 200 MG TAB] 200 mg PO DAILY #30 tablet 11/27/17 04/30/18 Unknown Rx AtorvaSTATin [Lipitor] 40 mg PO QHS #30 tablet 11/27/17 04/30/18 Unknown Rx Carvedilol [Coreg] 25 mg PO DAILY #30 tablet 11/27/17 04/30/18 Unknown Rx Dabigatran [Pradaxa] 150 mg PO BID #60 capsule 11/27/17 04/30/18 Unknown Rx NIFEdipine [Nifedipine ER] 60 mg PO DAILY #30 tab.er.24 11/27/17 04/30/18 Unknown Rx Fluticasone [Flonase] 200 mcg IN DAILY 04/30/18 04/30/18 Unknown History Levothyroxine [Synthroid] 50 mcg PO DAILY 04/30/18 04/30/18 Unknown History Meclizine [Antivert] 12.5 mg PO DAILY PRN 04/30/18 04/30/18 Unknown History Omeprazole 20 mg PO DAILY 04/30/18 04/30/18 Unknown History Valsartan [Diovan] 320 mg PO DAILY 04/30/18 04/30/18 Unknown History ED Physical Exam - General Limitations: Language Barrier General appearance: alert, in no apparent distress - Head Head exam: Present: atraumatic, normocephalic - Eye Eye exam: Present: normal appearance - ENT ENT exam: Present: mucous membranes moist - Neck Neck exam: Present: normal inspection - Respiratory Respiratory exam: Present: normal lung sounds bilaterally. Absent: respiratory distress, wheezes, rales, rhonchi - Cardiovascular Cardiovascular Exam: Present: regular rate, normal rhythm. Absent: systolic murmur, diastolic murmur, rubs, gallop - GI/Abdominal GI/Abdominal exam: Present: soft, normal bowel sounds. Absent: distended, tenderness, guarding, rebound - Extremities Exam Extremities exam: Present: normal inspection - Back Exam Back exam: Present: normal inspection - Neurological Exam Neurological exam: Present: alert, oriented X3 - Psychiatric Psychiatric exam: Present: normal affect, normal mood - Skin Skin exam: Present: warm, dry, intact, normal color. Absent: rash ED Course Vital Signs 11/14/18 11/14/18 11/14/18 15:38 15:41 16:59 Temperature 98.3 F Pulse Rate 76 70 Respiratory 18 Rate Blood Pressure 228/92 146/58 Blood Pressure 236/83 [Left] O2 Sat by Pulse 95 Oximetry Patient to be given an dose of IV hydralazine the patient will be reassessed ED Medical Decision Making - Lab Data Result diagrams: 11/14/18 15:46 11/14/18 15:46 Lab Results 11/14/18 11/14/18 11/14/18 Range/Units 15:41 15:46 15:46 WBC 5.4 (4.5-11.0) K/mm3 RBC 4.24 (3.65-5.03) M/mm3 Hgb 13.4 (10.1-14.3) gm/dl Hct 40.2 (30.3-42.9) % MCV 95 (79-97) fl MCH 32 (28-32) pg MCHC 33 (30-34) % RDW 15.5 H (13.2-15.2) % Plt Count 176 (140-440) K/mm3 Lymph % (Auto) 18.9 (13.4-35.0) % [place] % (Auto) 11.2 H (0.0-7.3) % Eos % (Auto) 2.6 (0.0-4.3) % Baso % (Auto) 0.5 (0.0-1.8) % Lymph # 1.0 L (1.2-5.4) K/mm3 [place] # 0.6 (0.0-0.8) K/mm3 Eos # 0.1 (0.0-0.4) K/mm3 Baso # 0.0 (0.0-0.1) K/mm3 Seg Neutrophils % 66.8 (40.0-70.0) % Seg Neutrophils # 3.6 (1.8-7.7) K/mm3 PT 13.6 (12.2-14.9) Sec. INR 0.98 (0.87-1.13) APTT 24.7 (24.2-36.6) Sec. Sodium 140 (137-145) mmol/L Potassium 4.2 (3.6-5.0) mmol/L Chloride 107.0 (98-107) mmol/L Carbon Dioxide 23 (22-30) mmol/L Anion Gap 14 mmol/L BUN 18 H (7-17) mg/dL Creatinine 0.7 (0.7-1.2) mg/dL Estimated GFR > 60 ml/min BUN/Creatinine Ratio 26 % Glucose 146 H (65-100) mg/dL Calcium 8.7 (8.4-10.2) mg/dL Total Bilirubin 0.30 (0.1-1.2) mg/dL AST 46 H (5-40) units/L ALT 43 (7-56) units/L Alkaline Phosphatase 108 (35-129) units/L Troponin T < 0.010 (0.00-0.029) ng/mL Total Protein 8.1 (6.3-8.2) g/dL Albumin 4.0 (3.9-5) g/dL Albumin/Globulin Ratio 1.0 % - Medical Decision Making Patient received a dose of hydralazine and blood pressure did decrease. Patient stable for discharge we'll follow her primary care physician. Critical care attestation.: If time is entered above; I have spent that time in minutes in the direct care of this critically ill patient, excluding procedure time. ED Disposition Clinical Impression: Hypertensive urgency Disposition: DC-01 TO HOME OR SELFCARE Is pt being admited?: No Does the pt Need Aspirin: No Condition: Stable Instructions: Hypertension (ED) Additional Instructions: Please follow-up with your primary care physician to see if they would like to adjust your blood pressure regimen Time of Disposition: 17:11
[2018-11-14 18:04] VITALS: BP 122/47
== END 2018-11-14 17:45 | disposition home or self-care (01) ==
LOC: ED 15:04
DX: I16.0 Hypertensive urgency (principal); I10 Essential (primary) hypertension; I25.2 Old myocardial infarction; Z95.0 Presence of cardiac pacemaker
CPT/HCPCS: 36415; 80053; 84484; 85025; 85610; 85730; 96374; 99283; J0360

== ENCOUNTER 2019-05-29 16:34 | Inpatient (IN) | payer MEDICARE, MEDICAID ==
--- NOTE | 2019-05-29 17:25 | Event Note ---
ED Screening Note Date of service: 05/29/19 Time: 17:21 ED Screening Note: This is a 83 y.o. F. that presents to the ER with RLE swelling and pain for 3 weeks. Patient seen by PCP Dr. Colunga last week and started on new medication. Denies recent travel, chest pain, SOB, or palpitations. PMH HTN, CHF, HLD, and hypothyroidism This initial assessment/diagnostic orders/clinical plan/treatment(s) is/are subject to change based on patients health status, clinical progression and re- assessment by fellow clinical providers in the ED. Further treatment and workup at subsequent clinical providers discretion. Patient/guardian urged not to elope from the ED as their condition may be serious if not clinically assessed and managed. Initial orders include: Labs and Doppler RLE
[2019-05-29 17:59] LABS: Basophils # (Auto) 0.1 K/mm3 (0.0-0.1); Basophils % (Auto) 0.6 % (0.0-1.8); Eosinophils # (Auto) 0.1 K/mm3 (0.0-0.4); Eosinophils % (Auto) 1.1 % (0.0-4.3); Hematocrit 38.9 % (30.3-42.9); Hemoglobin 13.2 gm/dl (10.1-14.3); Lymphocytes # (Auto) 1.6 K/mm3 (1.2-5.4); Lymphocytes % (Auto) 15.4 % (13.4-35.0); Mean Corpuscular HGB Conc 34 % (30-34); Mean Corpuscular Volume 95 fl (79-97); Monocytes # (Auto) 1.3 K/mm3 (0.0-0.8); Monocytes % (Auto) 12.4 % (0.0-7.3); Platelet Count 211 K/mm3 (140-440); Red Blood Count 4.11 M/mm3 (3.65-5.03); Red Cell Distribution Width 15.5 % (13.2-15.2)
[2019-05-29 18:15] LABS: Albumin 4.3 g/dL (3.9-5); Calcium 8.8 mg/dL (8.4-10.2)
[2019-05-29] MEDS ORDERED: FUROSEMIDE 20 MG/2 ML INJ IV ONE (19:02)
--- NOTE | 2019-05-29 19:07 | Emergency Department Report ---
ED General Adult HPI - General Chief complaint: Extremity Injury, Lower Stated complaint: PAIN IN (R) LEG Time Seen by Provider: 05/29/19 17:20 Source: patient, family, RN notes reviewed, old records reviewed Mode of arrival: Wheelchair Limitations: Language Barrier - History of Present Illness Initial comments: Primary care Dr.: Dr. Edy Colunga Past medical history: Hyponatremia, poor sodium intake, dual-chamber pacemaker, history of first-degree AV block, hypothyroidism. Patient is accompanied by her son. Her son provides the history. He indicates the patient prefers that the son translate. The patient presents to the ER with a complaint of nontraumatic bilateral lower extremity foot pain, leg pain and swelling. Currently, the right lower extremity is more painful and swollen. It is not red. It has been going on for 2 days. Apparently, the patient has been having intermittent lower extremity swelling since one month ago. The son en dorses at the primary care doctor ordered an outpatient ultrasound, which was negative for DVT. There is no dorsum to physical pain. Patient endorses a sensation of generalized weakness. She made no complaint of headache, neck pain, chest pain, abdominal pain. She denied urinary symptoms. She is not having any bright red blood per rectum or hematemesis. Her son indicates that she eats very bland food, and does not eat a lot of salt. -: Gradual, days(s), week(s) Location: left, right, lower extremity Consistency: intermittent Improves with: rest Worsens with: movement - Related Data Home Medications Medication Instructions Recorded Confirmed Last Taken Fluticasone [Flonase] 1 spray IN DAILY PRN 04/30/18 05/29/19 Unknown Meclizine [Antivert] 12.5 mg PO DAILY PRN 04/30/18 05/29/19 Unknown Omeprazole 20 mg PO DAILY 04/30/18 05/29/19 Unknown Potassium Chloride [K-Dur] 1 tab PO DAILY 05/29/19 05/29/19 Unknown Telmisartan/Hydrochlorothiazid 1 tab PO DAILY 05/29/19 05/29/19 Unknown [Telmisartan-Hctz 80-12.5 mg Tb] cloNIDine [Catapres] 0.1 mg PO DAILY PRN 05/29/19 05/29/19 Unknown Previous Rx's Medication Instructions Recorded Last Taken Type Amiodarone [Cordarone 200 MG TAB] 200 mg PO DAILY #30 tablet 11/27/17 Unknown Rx AtorvaSTATin [Lipitor] 40 mg PO QHS #30 tablet 11/27/17 Unknown Rx Carvedilol [Coreg] 25 mg PO DAILY #30 tablet 11/27/17 Unknown Rx NIFEdipine [Nifedipine ER] 60 mg PO DAILY #30 tab.er.24 11/27/17 Unknown Rx Allergies Allergy/AdvReac Type Severity Reaction Status Date / Time No Known Allergies Allergy Verified 11/14/18 15:28 ED Review of Systems ROS: Stated complaint: PAIN IN (R) LEG Other details as noted in HPI Constitutional: malaise Eyes: denies: eye discharge Respiratory: denies: wheezing Cardiovascular: edema Gastrointestinal: denies: abdominal pain Genitourinary: denies: dysuria Musculoskeletal: myalgia Skin: denies: lesions Neurological: weakness ED Past Medical Hx - Past Medical History Previous Medical History?: Yes Hx Hypertension: Yes Hx Heart Attack/AMI: Yes Additional medical history: Vertigo - Surgical History Past Surgical History?: Yes Additional Surgical History: Pacemaker - Social History Smoking Status: Never Smoker Substance Use Type: None - Medications Home Medications: Home Medications Medication Instructions Recorded Confirmed Last Taken Type Amiodarone [Cordarone 200 MG TAB] 200 mg PO DAILY #30 tablet 11/27/17 05/29/19 Unknown Rx AtorvaSTATin [Lipitor] 40 mg PO QHS #30 tablet 11/27/17 05/29/19 Unknown Rx Carvedilol [Coreg] 25 mg PO DAILY #30 tablet 11/27/17 05/29/19 Unknown Rx NIFEdipine [Nifedipine ER] 60 mg PO DAILY #30 tab.er.24 11/27/17 05/29/19 Unknown Rx Fluticasone [Flonase] 1 spray IN DAILY PRN 04/30/18 05/29/19 Unknown History Meclizine [Antivert] 12.5 mg PO DAILY PRN 04/30/18 05/29/19 Unknown History Omeprazole 20 mg PO DAILY 04/30/18 05/29/19 Unknown History Potassium Chloride [K-Dur] 1 tab PO DAILY 05/29/19 05/29/19 Unknown History Telmisartan/Hydrochlorothiazid 1 tab PO DAILY 05/29/19 05/29/19 Unknown History [Telmisartan-Hctz 80-12.5 mg Tb] cloNIDine [Catapres] 0.1 mg PO DAILY PRN 05/29/19 05/29/19 Unknown History ED Physical Exam - General Limitations: Language Barrier General appearance: alert, in no apparent distress - Head Head exam: Present: atraumatic, normocephalic - Eye Eye exam: Present: normal appearance, EOMI. Absent: nystagmus - ENT ENT exam: Present: normal exam, normal orophraynx, mucous membranes moist, normal external ear exam - Neck Neck exam: Present: normal inspection, full ROM. Absent: tenderness, meningismus - Respiratory Respiratory exam: Present: normal lung sounds bilaterally. Absent: respiratory distress - Cardiovascular Cardiovascular Exam: Present: regular rate, normal rhythm, systolic murmur. Absent: bradycardia, tachycardia, irregular rhythm, diastolic murmur, rubs, gallop - GI/Abdominal GI/Abdominal exam: Present: soft. Absent: distended, tenderness, guarding, rebound, rigid, pulsatile mass - Extremities Exam Extremities exam: Present: normal inspection, full ROM, pedal edema (there is 3+ pitting edema in the bilateral lower extremities), other (2+ pulses noted in the bilateral upper, lower extremities. There is no long bone tenderness. Musculoskeletal compartments are soft. The pelvis is stable.). Absent: calf tenderness - Back Exam Back exam: Present: normal inspection - Neurological Exam Neurological exam: Present: alert, other (there is no facial droop. The tongue is midline. Extraocular movements are intact bilaterally. Patient speaking in full complete sentences. Shoulder shrug is intact bilaterally. Hearing is grossly intact bilaterally. Visual acuity intact to finger counting and color perception at a close distance. 5/5 strength 4 extremities. Sensation intact to light touch in 4 extremities.) - Psychiatric Psychiatric exam: Present: normal affect, normal mood - Skin Skin exam: Present: warm, dry, intact, normal color. Absent: rash ED Course Vital Signs 05/29/19 05/29/19 05/29/19 17:20 19:40 20:00 Temperature 98.4 F 98.2 F Pulse Rate 64 73 73 Respiratory 16 15 20 Rate Blood Pressure 151/61 169/54 Blood Pressure 169/54 [Left] O2 Sat by Pulse 94 94 Oximetry 05/29/19 05/29/19 20:40 20:50 Temperature Pulse Rate 88 71 Respiratory 24 16 Rate Blood Pressure 169/54 169/54 Blood Pressure [Left] O2 Sat by Pulse 93 96 Oximetry - Reevaluation(s) Reevaluation #1: 05/29/19 20:10 Laboratory studies reviewed and appreciated. Hypothyroidism appears to be worse than on prior evaluations. Free T4 ordered, Synthroid ordered. Case presented to Hospital nurse practitioner, Aly Green, who accepts the patient to the medical service. ED Medical Decision Making - Lab Data Result diagrams: 05/29/19 17:45 05/29/19 17:45 Vital Signs 05/29/19 17:20 Temperature 98.4 F Pulse Rate 64 Respiratory 16 Rate Blood Pressure 151/61 - Medical Decision Making Differential diagnosis, including not limited to: Hyponatremia, hyperkalemia, dependent edema, Assessment and plan: 83-year-old female with bilateral lower extremity swelling, not tachycardic, not hypoxic, not tachypneic, clear breath sounds bilaterally, reported negative outpatient ultrasound of the lower extremities performed, likely presenting with hypervolemic hyponatremia. Discussed case with nephrology on-call, Dr. Carolina Bright. Patient has not endorsed any specific neurologic symptoms, and has an unremarkable exam, therefore, hypertonic saline was not indicated Recommends fluid restriction, 1000 mL per day, is in agreement with Lasix, 20 mg twice daily, indicates his group will follow in consultation. Hospital physician was paged to arrange admission. Discussed admission with family, who verbalized understanding, and who are amenable to hospitalization Critical care attestation.: If time is entered above; I have spent that time in minutes in the direct care of this critically ill patient, excluding procedure time. ED Disposition Clinical Impression: Hyponatremia, Dependent edema Hypothyroidism Qualifiers: Hypothyroidism type: other Qualified Code(s): E03.8 - Other specified hypothyroidism Disposition: OP ADMIT IP TO THIS HOSP Is pt being admited?: Yes Condition: Stable
[2019-05-29 19:25] LABS: Creatinine,Urine 26.4 mg/dL (0.1-20.0)
[2019-05-29 19:28] LABS: Uric Acid 4.1 mg/dL (3.5-7.6)
[2019-05-29 19:33] LABS: INR 1.09 (0.87-1.13)
[2019-05-29 19:34] LABS: Partial Thromboplastin Time 22.9 Sec. (24.2-36.6)
[2019-05-29 19:47] LABS: Bilirubin,Urine NEG (Negative); Blood,Urine SM (Negative); Color,Urine Straw (Yellow); Protein,Urine <15 mg/dL mg/dL (Negative); RBC,Urine < 1.0 /HPF (0.0-6.0); Urobilinogen,Urine < 2.0 mg/dL (<2.0); WBC,Urine < 1.0 /HPF (0.0-6.0)
--- NOTE | 2019-05-29 20:05 | XRay Report ---
CHEST 1 VIEW 1929 INDICATION / CLINICAL INFORMATION: b/l lower ext swelling. COMPARISON: 11/24/2017 FINDINGS: SUPPORT DEVICES: Pacer appears unchanged HEART / MEDIASTINUM: Heart size appears within normal limits LUNGS / PLEURA: Chronic changes are again seen in the lung murillo without obvious acute infiltrate No pneumothorax. ADDITIONAL FINDINGS: No significant additional findings. IMPRESSION: No significant changes Signer Name: Wayne Pelayo MD Signed: 05/29/2019 8:01 PM Workstation Name: [id number]
[2019-05-29] MEDS ORDERED: LEVOTHYROXINE 50 MCG TAB PO STA (20:09)
[2019-05-29] MEDS ORDERED: ALBUTEROL 2.5 MG/3 ML NEBU IH PRN (20:20)
[2019-05-29] MEDS ORDERED: ONDANSETRON 4 MG/2 ML INJ IV PRN (20:20)
[2019-05-29] MEDS ORDERED: ACETAMINOPHEN 325 MG TAB PO PRN (20:20)
[2019-05-29] MEDS ORDERED: oxyCODONE /ACETAMINOPHEN 5-325MG TAB PO PRN (20:20)
[2019-05-29] MEDS ORDERED: cloNIDine 0.1 MG TAB PO PRN (20:24)
[2019-05-29] MEDS ORDERED: MECLIZINE 12.5 MG TAB PO PRN (20:24)
--- NOTE | 2019-05-29 21:50 | History and Physical Report ---
History of Present Illness Date of examination: 05/29/19 Date of admission: 05/29/19 20:20 Chief complaint: Bilateral lower extremity foot pain, leg pain and swelling History of present illness: 83-year-old female with history of hypothyroidism, CHF, hyponatremia, hypertension, cardiomyopathy status post pacemaker who presents [facility] ED with complaints of bilateral lower extremity foot pain, leg pain and swelling for the past 2 days. Pt does not speak swazi. Her son is present at the bedside. She has requested that he translate and assist with history. She has been having intermittent bilateral lower extremity swelling for the past month, which has gotten worse over the past 2 days. Pt went to PCP regarding leg pain and swelling, and had outpatient ultrasound which was negative for PE. As per son, pt consumes low sodium diet. Admits: Generalized weakness, bilateral lower extremity edema Denies: Fever, n/v/d, headache, Past History Past Medical History: acute GA, heart failure, hyperlipidemia, hypothyroidism, other (myopathy, hyponatremia, vertigo) Past Surgical History: Other (pacemaker, ) Social history: lives with family Family history: no significant family history Medications and Allergies Allergies Allergy/AdvReac Type Severity Reaction Status Date / Time No Known Allergies Allergy Verified 11/14/18 15:28 Home Medications Medication Instructions Recorded Confirmed Last Taken Type Amiodarone [Cordarone 200 MG TAB] 200 mg PO DAILY #30 tablet 11/27/17 05/29/19 Unknown Rx AtorvaSTATin [Lipitor] 40 mg PO QHS #30 tablet 11/27/17 05/29/19 Unknown Rx Carvedilol [Coreg] 25 mg PO DAILY #30 tablet 11/27/17 05/29/19 Unknown Rx NIFEdipine [Nifedipine ER] 60 mg PO DAILY #30 tab.er.24 11/27/17 05/29/19 Unknown Rx Fluticasone [Flonase] 1 spray IN DAILY PRN 04/30/18 05/29/19 Unknown History Meclizine [Antivert] 12.5 mg PO DAILY PRN 04/30/18 05/29/19 Unknown History Omeprazole 20 mg PO DAILY 04/30/18 05/29/19 Unknown History Potassium Chloride [K-Dur] 1 tab PO DAILY 05/29/19 05/29/19 Unknown History Telmisartan/Hydrochlorothiazid 1 tab PO DAILY 05/29/19 05/29/19 Unknown History [Telmisartan-Hctz 80-12.5 mg Tb] cloNIDine [Catapres] 0.1 mg PO DAILY PRN 05/29/19 05/29/19 Unknown History Active Meds: Active Medications Acetaminophen (Tylenol) 650 mg PO Q4H PRN PRN Reason: Pain MILD(1-3)/Fever >100.5/SEO Albuterol (Proventil) 2.5 mg IH Q3HRT PRN PRN Reason: Shortness Of Breath Amiodarone HCl (Cordarone) 200 mg PO DAILY CELESTE Atorvastatin Calcium (Lipitor) 40 mg PO QHS CELESTE Carvedilol (Coreg) 25 mg PO DAILY CELESTE Clonidine HCl (Catapres) 0.1 mg PO DAILY PRN PRN Reason: Hypertension Docusate Sodium (Colace) 100 mg PO BID CELESTE Enoxaparin Sodium (Lovenox) 40 mg SUB-Q QDAY CELESTE Furosemide (Lasix) 20 mg IV BID [facility] Levothyroxine Sodium (Synthroid) 50 mcg PO DAILY@0600 CELESTE Meclizine HCl (Antivert) 12.5 mg PO DAILY PRN PRN Reason: Vertigo Miscellaneous Medication (Omeprazole [Omeprazole]) 20 mg PO DAILY [facility] Nifedipine (Procardia Xl) 60 mg PO DAILY CELESTE Ondansetron HCl (Zofran) 4 mg IV Q8H PRN PRN Reason: Nausea And Vomiting Oxycodone/Acetaminophen (Percocet 5/325) 1 tab PO Q6H PRN PRN Reason: Pain, Moderate (4-6) Sodium Chloride (Sodium Chloride Flush Syringe 10 Ml) 10 ml IV BID [facility] Sodium Chloride (Sodium Chloride Flush Syringe 10 Ml) 10 ml IV PRN PRN PRN Reason: LINE FLUSH Review of Systems All systems: negative Cardiovascular: leg edema Musculoskeletal: other (bilateral lower extremity foot pain, leg pain) Exam - Physical Exam Narrative exam: Physical exam General appearance: Present: No acute distress, alert and oriented 3, well developed, pleasant, older adult female - EENT Eyes: Present: PERRL, EOM intact, ENT: hearing intact, normal dentition - Neck Neck: Present: supple, normal ROM - Respiratory Respiratory effort: Non-labored Respiratory: CTA - Cardiovascular Heart rate: 68 (bpm) Rhythm: SR Heart Sounds: Present: S1-S2, systolic murmur - Extremities Extremities: no ischemia, pulses intact, bilateral pedal edema, bilateral lower extremity 3+ pitting edema (R>L) - Peripheral Assessment Peripheral Pulses: within normal limits - Abdominal General gastrointestinal: Soft, non-tender, normal bowel sounds - Integumentary Integumentary: Present: warm, dry, - Musculoskeletal Musculoskeletal: Able to move all extremities, -Neurological Neurological: CN II-XII grossly intact - Psychiatric Psychiatric: cooperative - Constitutional Vitals: Temp Pulse Resp BP Pulse Ox 98.2 F 73 20 169/54 94 05/29/19 19:40 05/29/19 20:00 05/29/19 20:00 05/29/19 20:00 05/29/19 20:00 Results - Labs CBC & Chem 7: 05/29/19 17:45 05/29/19 17:45 Labs: Laboratory Last Values WBC 10.6 K/mm3 (4.5-11.0) 05/29/19 17:45 RBC 4.11 M/mm3 (3.65-5.03) 05/29/19 17:45 Hgb 13.2 gm/dl (10.1-14.3) 05/29/19 17:45 Hct 38.9 % (30.3-42.9) 05/29/19 17:45 MCV 95 fl (79-97) 05/29/19 17:45 MCH 32 pg (28-32) 05/29/19 17:45 MCHC 34 % (30-34) 05/29/19 17:45 RDW 15.5 % (13.2-15.2) H 05/29/19 17:45 Plt Count 211 K/mm3 (140-440) 05/29/19 17:45 Lymph % (Auto) 15.4 % (13.4-35.0) 05/29/19 17:45 Sebastian % (Auto) 12.4 % (0.0-7.3) H 05/29/19 17:45 Eos % (Auto) 1.1 % (0.0-4.3) 05/29/19 17:45 Baso % (Auto) 0.6 % (0.0-1.8) 05/29/19 17:45 Lymph # 1.6 K/mm3 (1.2-5.4) 05/29/19 17:45 Sebastian # 1.3 K/mm3 (0.0-0.8) H 05/29/19 17:45 Eos # 0.1 K/mm3 (0.0-0.4) 05/29/19 17:45 Baso # 0.1 K/mm3 (0.0-0.1) 05/29/19 17:45 Seg Neutrophils % 70.5 % (40.0-70.0) H 05/29/19 17:45 Seg Neutrophils # 7.5 K/mm3 (1.8-7.7) 05/29/19 17:45 PT 13.8 Sec. (12.2-14.9) 05/29/19 18:57 INR 1.09 (0.87-1.13) 05/29/19 18:57 APTT 22.9 Sec. (24.2-36.6) L 05/29/19 18:57 Sodium 120 mmol/L (137-145) L 05/29/19 17:45 Potassium 5.1 mmol/L (3.6-5.0) H 05/29/19 17:45 Chloride 89.4 mmol/L (98-107) L 05/29/19 17:45 Carbon Dioxide 21 mmol/L (22-30) L 05/29/19 17:45 15 mmol/L 05/29/19 17:45 BUN 18 mg/dL (7-17) H 05/29/19 17:45 1.0 mg/dL (0.7-1.2) 05/29/19 17:45 Estimated GFR 53 ml/min 05/29/19 17:45 18 % 05/29/19 17:45 Glucose 144 mg/dL (65-100) H 05/29/19 17:45 4.1 mg/dL (3.5-7.6) 05/29/19 18:57 Calcium 8.8 mg/dL (8.4-10.2) 05/29/19 17:45 Magnesium 2.10 mg/dL (1.7-2.3) 05/29/19 18:57 0.40 mg/dL (0.1-1.2) 05/29/19 17:45 AST 62 units/L (5-40) H 05/29/19 17:45 ALT 60 units/L (7-56) H 05/29/19 17:45 114 units/L (35-129) 05/29/19 17:45 249 units/L (30-135) H 05/29/19 18:57 NT-Pro-B Natriuret Pep 1996 pg/mL (0-900) H 05/29/19 17:45 8.4 g/dL (6.3-8.2) H 05/29/19 17:45 4.3 g/dL (3.9-5) 05/29/19 17:45 1.0 % 05/29/19 17:45 TSH 12.150 mlU/mL (0.270-4.200) H 05/29/19 18:57 Free T4 0.76 ng/dL (0.76-1.46) 05/29/19 19:43 Straw (Yellow) 05/29/19 18:54 Clear (Clear) 05/29/19 18:54 5.0 (5.0-7.0) 05/29/19 18:54 Ur Specific [place] 1.006 (1.003-1.030) 05/29/19 18:54 <15 mg/dl mg/dL (Negative) 05/29/19 18:54 Neg mg/dL (Negative) 05/29/19 18:54 Neg mg/dL (Negative) 05/29/19 18:54 Sm (Negative) 05/29/19 18:54 Neg (Negative) 05/29/19 18:54 Neg (Negative) 05/29/19 18:54 < 2.0 mg/dL (<2.0) 05/29/19 18:54 Ur Leukocyte Esterase Neg (Negative) 05/29/19 18:54 < 1.0 /HPF (0.0-6.0) 05/29/19 18:54 < 1.0 /HPF (0.0-6.0) 05/29/19 18:54 206 Mosm/kg 05/29/19 18:54 26.4 mg/dL (0.1-20.0) H 05/29/19 18:54 34 mmol/L 05/29/19 18:54 - Imaging and Cardiology Imaging and Cardiology: CXR FINDINGS: SUPPORT DEVICES: Pacer appears unchanged HEART / MEDIASTINUM: Heart size appears within normal limits LUNGS / PLEURA: Chronic changes are again seen in the lung murillo without obvious acute infiltrate No pneumothorax. ADDITIONAL FINDINGS: No significant additional findings. IMPRESSION: No significant changes Assessment and Plan Assessment and plan: 83-year-old female with history of hypothyroidism, CHF, hyponatremia, hypertens ion, cardiomyopathy status post pacemaker who presents [facility] ED with complaints of bilateral lower extremity foot pain, leg pain and swelling for the past 2 days. Hypervolemic hyponatremia -Sodium on admission 120 -Evidence of fluid overload, 3+ bilateral lower extremity pitting edema -Strict I's and O's -Fluid Restriction of 1 L -Gentle diuresis with IV Lasix 20 twice a day -Nephrology consulted CHF -CXR negative -Continue heart failure meds -Cardiology consulted Hypertension -BP elevated at 151/61 -Monitor BP -Resume home antihypertensive meds to optimized BP -IV hydralazine when necessary History of hypothyroidism -TSH on admission 12.15 -Currently non compliant with meds -Start Synthroid 50 mcg daily DVT PPX -on Lovenox Advance Directives: No VTE prophylaxis?: Chemical Plan of care discussed with patient/family: Yes
[2019-05-29] MEDS ORDERED: hydrALAZINE 20 MG/1 ML INJ IV PRN (21:52)
[2019-05-29] MEDS: DOCUSATE SODIUM 100 MG CAP PO SCH (22:29)
[2019-05-29] MEDS: FUROSEMIDE 20 MG/2 ML INJ IV SCH (22:30)
[2019-05-30 04:58] LABS: Basophils % (Auto) 0.4 % (0.0-1.8); Eosinophils # (Auto) 0.1 K/mm3 (0.0-0.4); Eosinophils % (Auto) 1.2 % (0.0-4.3); Hematocrit 37.7 % (30.3-42.9); Lymphocytes # (Auto) 1.7 K/mm3 (1.2-5.4); Lymphocytes % (Auto) 14.5 % (13.4-35.0); Mean Corpuscular HGB Conc 34 % (30-34); Mean Corpuscular Volume 95 fl (79-97); Monocytes # (Auto) 1.5 K/mm3 (0.0-0.8); Monocytes % (Auto) 12.8 % (0.0-7.3); Platelet Count 201 K/mm3 (140-440); Red Blood Count 3.96 M/mm3 (3.65-5.03); Red Cell Distribution Width 15.5 % (13.2-15.2)
[2019-05-30 05:17] LABS: Calcium 8.9 mg/dL (8.4-10.2)
[2019-05-30] MEDS: LEVOTHYROXINE 50 MCG TAB PO SCH (05:37)
--- NOTE | 2019-05-30 08:24 | Progress Note ---
Assessment and Plan Assessment and plan: Patient is a 83-year-old Vietanames speaking woman (daughter Mine at bedside was the Nuclear Officer, per patient wishes) with history of hypothyroidism, CHF, hyponatremia, hypertension, cardiomyopathy status post pacemaker who presents [facility] ED with complaints of bilateral lower extremity foot pain, leg pain and swelling for the past 2 days. Severe Hyponatremia due to diuretics Micardis -HCT and Spironolactone: reduce lasix Right leg swelling and pain, no DVT on doppler, edema resolved ?CHF ex: ECHO pending P. Afib with wide complex tachy: Cardiology input noted h/o Sick Sinus syndrome with pacemaker Hypertension uncontrolled: increase Coreg History of hypothyroidism, -TSH on admission 12.15, -Currently non compliant with meds, -Start Synthroid 50 mcg daily d/c once sodium levels near 130 History Interval history: Patient was seen and examined. Follow-up on current diagnosis. No overnight events reported to me. Patient denies any chest pain, shortness breath, nausea/vomiting or severe headaches. Imaging, nursing note, chart, labs and old chart reviewed. Discussed with patient. Hospitalist Physical - Physical exam Narrative exam: Gen: WDWN, NAD, Awake, Alert, Orientated HEENT: NCAT, EOMI, PERRL, OP Clear Neck: supple, no adenopathy, no thyromegaly, no JVD CVS/Heart: RRR, normal S1S2, pulses present bilaterally Chest/Lungs: CTA B, Symmetrical chest expansion, good air entry bilaterally GI/Abdomen: soft, NTND, good bowel sounds, no guarding or rebound /Bladder: no suprapubic tenderness, no CVA or paraspinal tenderness Extermity/Skin: +ble edema, no obvious rash MSK: FROM x 4 Neuro: CN 2-12 grossly intact, no new focal deficits Psych: calm - Constitutional Vitals: Temp Pulse Resp BP Pulse Ox 98.5 F 106 H 20 126/57 93 05/30/19 07:24 05/30/19 07:24 05/30/19 07:24 05/30/19 07:24 05/30/19 07:24 Results - Labs CBC & Chem 7: 05/30/19 04:18 05/30/19 04:18 Labs: Laboratory Last Values WBC 12.1 K/mm3 (4.5-11.0) H 05/30/19 04:18 RBC 3.96 M/mm3 (3.65-5.03) 05/30/19 04:18 Hgb 13.0 gm/dl (10.1-14.3) 05/30/19 04:18 Hct 37.7 % (30.3-42.9) 05/30/19 04:18 MCV 95 fl (79-97) 05/30/19 04:18 MCH 33 pg (28-32) H 05/30/19 04:18 MCHC 34 % (30-34) 05/30/19 04:18 RDW 15.5 % (13.2-15.2) H 05/30/19 04:18 Plt Count 201 K/mm3 (140-440) 05/30/19 04:18 Lymph % (Auto) 14.5 % (13.4-35.0) 05/30/19 04:18 Tucker % (Auto) 12.8 % (0.0-7.3) H 05/30/19 04:18 Eos % (Auto) 1.2 % (0.0-4.3) 05/30/19 04:18 Baso % (Auto) 0.4 % (0.0-1.8) 05/30/19 04:18 Lymph # 1.7 K/mm3 (1.2-5.4) 05/30/19 04:18 Tucker # 1.5 K/mm3 (0.0-0.8) H 05/30/19 04:18 Eos # 0.1 K/mm3 (0.0-0.4) 05/30/19 04:18 Baso # 0.0 K/mm3 (0.0-0.1) 05/30/19 04:18 Seg Neutrophils % 71.1 % (40.0-70.0) H 05/30/19 04:18 Seg Neutrophils # 8.6 K/mm3 (1.8-7.7) H 05/30/19 04:18 PT 13.8 Sec. (12.2-14.9) 05/29/19 18:57 INR 1.09 (0.87-1.13) 05/29/19 18:57 APTT 22.9 Sec. (24.2-36.6) L 05/29/19 18:57 Sodium 125 mmol/L (137-145) L 05/30/19 04:18 Potassium 4.4 mmol/L (3.6-5.0) 05/30/19 04:18 Chloride 87.5 mmol/L (98-107) L 05/30/19 04:18 Carbon Dioxide 21 mmol/L (22-30) L 05/30/19 04:18 21 mmol/L 05/30/19 04:18 BUN 21 mg/dL (7-17) H 05/30/19 04:18 1.1 mg/dL (0.7-1.2) 05/30/19 04:18 Estimated GFR 47 ml/min 05/30/19 04:18 19 % 05/30/19 04:18 Glucose 144 mg/dL (65-100) H 05/30/19 04:18 4.1 mg/dL (3.5-7.6) 05/29/19 18:57 Calcium 8.9 mg/dL (8.4-10.2) 05/30/19 04:18 Magnesium 2.10 mg/dL (1.7-2.3) 05/29/19 18:57 0.40 mg/dL (0.1-1.2) 05/29/19 17:45 AST 62 units/L (5-40) H 05/29/19 17:45 ALT 60 units/L (7-56) H 05/29/19 17:45 114 units/L (35-129) 05/29/19 17:45 249 units/L (30-135) H 05/29/19 18:57 NT-Pro-B Natriuret Pep 1996 pg/mL (0-900) H 05/29/19 17:45 8.4 g/dL (6.3-8.2) H 05/29/19 17:45 4.3 g/dL (3.9-5) 05/29/19 17:45 1.0 % 05/29/19 17:45 TSH 12.150 mlU/mL (0.270-4.200) H 05/29/19 18:57 Free T4 0.76 ng/dL (0.76-1.46) 05/29/19 19:43 Straw (Yellow) 05/29/19 18:54 Clear (Clear) 05/29/19 18:54 5.0 (5.0-7.0) 05/29/19 18:54 Ur Specific [place] 1.006 (1.003-1.030) 05/29/19 18:54 <15 mg/dl mg/dL (Negative) 05/29/19 18:54 Neg mg/dL (Negative) 05/29/19 18:54 Neg mg/dL (Negative) 05/29/19 18:54 Sm (Negative) 05/29/19 18:54 Neg (Negative) 05/29/19 18:54 Neg (Negative) 05/29/19 18:54 < 2.0 mg/dL (<2.0) 05/29/19 18:54 Ur Leukocyte Esterase Neg (Negative) 05/29/19 18:54 < 1.0 /HPF (0.0-6.0) 05/29/19 18:54 < 1.0 /HPF (0.0-6.0) 05/29/19 18:54 206 Mosm/kg 05/29/19 18:54 26.4 mg/dL (0.1-20.0) H 05/29/19 18:54 34 mmol/L 05/29/19 18:54 Active Medications - Current Medications Current Medications: Generic Name Dose Route Start Last Admin Trade Name Freq PRN Reason Stop Dose Admin Acetaminophen 650 mg 05/29/19 20:20 Tylenol PO Q4H PRN Pain MILD(1-3)/Fever >100.5/SEO Albuterol 2.5 mg 05/29/19 20:20 Proventil IH Q3HRT PRN Shortness Of Breath Amiodarone HCl 200 mg 05/30/19 10:00 Cordarone PO DAILY [facility] Atorvastatin Calcium 40 mg 05/29/19 22:00 05/29/19 22:29 Lipitor PO 40 mg QHS CELESTE Administration Carvedilol 25 mg 05/30/19 10:00 Coreg PO DAILY CELESTE Clonidine HCl 0.1 mg 05/29/19 20:24 Catapres PO DAILY PRN Hypertension Docusate Sodium 100 mg 05/29/19 22:00 05/29/19 22:29 Colace PO 100 mg BID CELESTE Administration Enoxaparin Sodium 40 mg 05/30/19 10:00 Lovenox SUB-Q QDAY CELESTE Furosemide 20 mg 05/29/19 22:00 05/29/19 22:30 Lasix IV 20 mg BID CELESTE Administration Hydralazine HCl 10 mg 05/29/19 21:52 Apresoline IV Q4HR PRN Blood Pressure Levothyroxine Sodium 50 mcg 05/30/19 06:00 05/30/19 05:37 Synthroid PO 50 mcg DAILY@0600 CELESTE Administration Meclizine HCl 12.5 mg 05/29/19 20:24 Antivert PO DAILY PRN Vertigo Nifedipine 60 mg 05/30/19 10:00 Procardia Xl PO DAILY CELESTE Ondansetron HCl 4 mg 05/29/19 20:20 Zofran IV Q8H PRN Nausea And Vomiting Oxycodone/Acetaminophen 1 tab 05/29/19 20:20 Percocet 5/325 PO Q6H PRN Pain, Moderate (4-6) Pantoprazole Sodium 20 mg 05/30/19 10:00 Protonix PO QDAY CELESTE Sodium Chloride 10 ml 05/29/19 22:00 05/29/19 22:30 Sodium Chloride Flush Syringe 10 Ml IV 10 ml BID CELESTE Administration Sodium Chloride 10 ml 05/29/19 20:20 Sodium Chloride Flush Syringe 10 Ml IV PRN PRN LINE FLUSH
--- NOTE | 2019-05-30 09:36 | Consultation ---
History of Present Illness Consult date: 05/30/19 Consult reason: congestive heart failure History of present illness: 83-year old woman who presented to the hospital with right lower extremity pain and found with severe hyponatremia, sodium 120. Previous laboratory value done a year ago, showed her sodium was 115. Cardiac consultation was requested for evaluation for CHF. Patient is resting in bed comfortably. There are no reports of chest pain, palpitations, unusual shortness of breath or edema. Chest x-ray reveals a no interstitial edema. Patient has a cardiac history of sick sinus syndrome and has a Biotronik dual- chamber pacemaker in situ. Patient also has a history of paroxysmal atrial fibrillation, on amiodarone and carvedilol for suppression. She is no longer on anticoagulation likely due to age, frailty and high risk for bleed. Her latest cardiac workup was done at this hospital a year ago. She had a normal persantine thallium stress test and a normal left ventricular ejection fraction, 60-65%. ECG not available for review. Telemetry shows atrial fibrillation with transient wide complex tachycardia, likely pacemaker induced. Past History Social history: lives with family Family history: no significant family history Medications and Allergies Allergies Allergy/AdvReac Type Severity Reaction Status Date / Time No Known Allergies Allergy Verified 11/14/18 15:28 Home Medications Medication Instructions Recorded Confirmed Last Taken Type Amiodarone [Cordarone 200 MG TAB] 200 mg PO DAILY #30 tablet 11/27/17 05/29/19 Unknown Rx AtorvaSTATin [Lipitor] 40 mg PO QHS #30 tablet 11/27/17 05/29/19 Unknown Rx Carvedilol [Coreg] 25 mg PO DAILY #30 tablet 11/27/17 05/29/19 Unknown Rx NIFEdipine [Nifedipine ER] 60 mg PO DAILY #30 tab.er.24 11/27/17 05/29/19 Unknown Rx Fluticasone [Flonase] 1 spray IN DAILY PRN 04/30/18 05/29/19 Unknown History Meclizine [Antivert] 12.5 mg PO DAILY PRN 04/30/18 05/29/19 Unknown History Omeprazole 20 mg PO DAILY 04/30/18 05/29/19 Unknown History Potassium Chloride [K-Dur] 1 tab PO DAILY 05/29/19 05/29/19 Unknown History Telmisartan/Hydrochlorothiazid 1 tab PO DAILY 05/29/19 05/29/19 Unknown History [Telmisartan-Hctz 80-12.5 mg Tb] cloNIDine [Catapres] 0.1 mg PO DAILY PRN 05/29/19 05/29/19 Unknown History Active Meds: Active Medications Acetaminophen (Tylenol) 650 mg PO Q4H PRN PRN Reason: Pain MILD(1-3)/Fever >100.5/SEO Albuterol (Proventil) 2.5 mg IH Q3HRT PRN PRN Reason: Shortness Of Breath Amiodarone HCl (Cordarone) 200 mg PO DAILY [facility] Atorvastatin Calcium (Lipitor) 40 mg PO QHS [facility] Last Admin: 05/29/19 22:29 Dose: 40 mg Documented by: Carvedilol (Coreg) 25 mg PO DAILY [facility] Clonidine HCl (Catapres) 0.1 mg PO DAILY PRN PRN Reason: Hypertension Docusate Sodium (Colace) 100 mg PO BID [facility] Last Admin: 05/29/19 22:29 Dose: 100 mg Documented by: Enoxaparin Sodium (Lovenox) 40 mg SUB-Q QDAY [facility] Furosemide (Lasix) 20 mg IV BID [facility] Last Admin: 05/29/19 22:30 Dose: 20 mg Documented by: Hydralazine HCl (Apresoline) 10 mg IV Q4HR PRN PRN Reason: Blood Pressure Levothyroxine Sodium (Synthroid) 50 mcg PO DAILY@0600 [facility] Last Admin: 05/30/19 05:37 Dose: 50 mcg Documented by: Meclizine HCl (Antivert) 12.5 mg PO DAILY PRN PRN Reason: Vertigo Nifedipine (Procardia Xl) 60 mg PO DAILY [facility] Ondansetron HCl (Zofran) 4 mg IV Q8H PRN PRN Reason: Nausea And Vomiting Oxycodone/Acetaminophen (Percocet 5/325) 1 tab PO Q6H PRN PRN Reason: Pain, Moderate (4-6) Pantoprazole Sodium (Protonix) 20 mg PO QDAY [facility] Sodium Chloride (Sodium Chloride Flush Syringe 10 Ml) 10 ml IV BID [facility] Last Admin: 05/29/19 22:30 Dose: 10 ml Documented by: Sodium Chloride (Sodium Chloride Flush Syringe 10 Ml) 10 ml IV PRN PRN PRN Reason: LINE FLUSH Physical Examination Vital Signs Temp Pulse Resp BP 98.4 F 64 16 151/61 05/29/19 17:20 05/29/19 17:20 05/29/19 17:20 05/29/19 17:20 General appearance: no acute distress HEENT: Positive: PERRL Neck: Positive: trachea midline Cardiac: Positive: irregularly irregular Lungs: Positive: Decreased Breath Sounds Neuro: Positive: Grossly Intact Extremities: Absent: edema Results 05/30/19 04:18 05/30/19 04:18 Cardiac Enzymes 05/29/19 Range/Units 17:45 AST 62 H (5-40) units/L Coagulation 05/29/19 Range/Units 18:57 PT 13.8 (12.2-14.9) Sec. INR 1.09 (0.87-1.13) APTT 22.9 L (24.2-36.6) Sec. CBC 05/29/19 05/30/19 Range/Units 17:45 04:18 WBC 10.6 12.1 H (4.5-11.0) K/mm3 RBC 4.11 3.96 (3.65-5.03) M/mm3 Hgb 13.2 13.0 (10.1-14.3) gm/dl Hct 38.9 37.7 (30.3-42.9) % Plt Count 211 201 (140-440) K/mm3 Lymph # 1.6 1.7 (1.2-5.4) K/mm3 [place] # 1.3 H 1.5 H (0.0-0.8) K/mm3 Eos # 0.1 0.1 (0.0-0.4) K/mm3 Baso # 0.1 0.0 (0.0-0.1) K/mm3 Comprehensive Metabolic Panel 05/29/19 05/30/19 Range/Units 17:45 04:18 Sodium 120 L 125 L (137-145) mmol/L Potassium 5.1 H 4.4 (3.6-5.0) mmol/L Chloride 89.4 L 87.5 L (98-107) mmol/L Carbon Dioxide 21 L 21 L (22-30) mmol/L BUN 18 H 21 H (7-17) mg/dL Creatinine 1.0 1.1 (0.7-1.2) mg/dL Glucose 144 H 144 H (65-100) mg/dL Calcium 8.8 8.9 (8.4-10.2) mg/dL AST 62 H (5-40) units/L ALT 60 H (7-56) units/L Alkaline Phosphatase 114 (35-129) units/L Total Protein 8.4 H (6.3-8.2) g/dL Albumin 4.3 (3.9-5) g/dL Assessment and Plan RLE pain -chief complaint Severe hyponatremia Hypertension Paroxysmal Afib on coreg and amiodarone for suppression. no longer on anticoagulation likely due to age, frailty and high risk for bleed. Hx of SSS s/p PPM (Biotronik) Normal persantine thallium stress test 11/2017. Normal LV systolic function, EF 60-65% on echocardiogram done 11/2017. Plan: 12 lead ECG. We will obtain a device interrogation.
--- NOTE | 2019-05-30 09:52 | Vascular Lab Report ---
DUPLEX DOPPLER LOWER EXTREMITY VEINS, RIGHT INDICATION: RLE swelling and pain, r/o dvt. TECHNIQUE: Duplex doppler imaging was performed through the veins of the right lower extremity using venous comp ression and other maneuvers. COMPARISON: No relevant prior imaging study available. FINDINGS: Right Common femoral vein: Negative. Right Superficial femoral vein: Negative. Right Popliteal vein: Negative. Right Calf veins: Negative. Additional findings: None.. IMPRESSION: 1. No sonographic evidence for DVT in the right lower extremity. Signer Name: Arvind Jamil MD Signed: 05/30/2019 9:47 AM Workstation Name: [id number]
[2019-05-30] MEDS ORDERED: AMIODARONE 200 MG TAB PO SCH (10:00)
[2019-05-30] MEDS ORDERED: carvediloL 25 MG TAB PO SCH (10:00)
[2019-05-30] MEDS ORDERED: NIFEdipine XL 60 MG TAB PO SCH (10:00)
[2019-05-30] MEDS: FUROSEMIDE 20 MG/2 ML INJ IV SCH (10:18)
[2019-05-30] MEDS: PANTOPRAZOLE 20 MG TAB PO SCH (10:19)
[2019-05-30] MEDS: ENOXAPARIN 40 MG/0.4 ML INJ SUB-Q SCH (10:20)
[2019-05-30] MEDS: DOCUSATE SODIUM 100 MG CAP PO SCH ×2 (10:20→22:18)
[2019-05-30] MEDS: carvediloL 25 MG TAB PO SCH ×2 (11:00→22:19)
--- NOTE | 2019-05-30 11:48 | Consultation ---
History of Present Illness - Reason for Consult Consult date: 05/30/19 hyponatremia - History of Present Illness patient was admitted yesterday for worsening pain in her legs with swelling, she was noted to have hyponatremia with elevated BNP, she was placed on fluid restriction and started on lop diuretics, renal consult was requested for hyponatremia management Past History Past Medical History: acute NE, heart failure, hyperlipidemia, hypothyroidism, other (myopathy, hyponatremia, vertigo) Past Surgical History: Other (pacemaker, ) Social history: lives with family Family history: no significant family history Medications and Allergies Allergies Allergy/AdvReac Type Severity Reaction Status Date / Time No Known Allergies Allergy Verified 11/14/18 15:28 Home Medications Medication Instructions Recorded Confirmed Last Taken Type Amiodarone [Cordarone 200 MG TAB] 200 mg PO DAILY #30 tablet 11/27/17 05/29/19 Unknown Rx AtorvaSTATin [Lipitor] 40 mg PO QHS #30 tablet 11/27/17 05/29/19 Unknown Rx Carvedilol [Coreg] 25 mg PO DAILY #30 tablet 11/27/17 05/29/19 Unknown Rx NIFEdipine [Nifedipine ER] 60 mg PO DAILY #30 tab.er.24 11/27/17 05/29/19 Unknown Rx Fluticasone [Flonase] 1 spray IN DAILY PRN 04/30/18 05/29/19 Unknown History Meclizine [Antivert] 12.5 mg PO DAILY PRN 04/30/18 05/29/19 Unknown History Omeprazole 20 mg PO DAILY 04/30/18 05/29/19 Unknown History Potassium Chloride [K-Dur] 1 tab PO DAILY 05/29/19 05/29/19 Unknown History Telmisartan/Hydrochlorothiazid 1 tab PO DAILY 05/29/19 05/29/19 Unknown History [Telmisartan-Hctz 80-12.5 mg Tb] cloNIDine [Catapres] 0.1 mg PO DAILY PRN 05/29/19 05/29/19 Unknown History Active Meds: Active Medications Acetaminophen (Tylenol) 650 mg PO Q4H PRN PRN Reason: Pain MILD(1-3)/Fever >100.5/SEO Albuterol (Proventil) 2.5 mg IH Q3HRT PRN PRN Reason: Shortness Of Breath Atorvastatin Calcium (Lipitor) 40 mg PO QHS [facility] Last Admin: 05/29/19 22:29 Dose: 40 mg Documented by: Carvedilol (Coreg) 25 mg PO Q12H [facility] Clonidine HCl (Catapres) 0.1 mg PO DAILY PRN PRN Reason: Hypertension Docusate Sodium (Colace) 100 mg PO BID [facility] Last Admin: 05/30/19 10:20 Dose: 100 mg Documented by: Enoxaparin Sodium (Lovenox) 40 mg SUB-Q QDAY [facility] Last Admin: 05/30/19 10:20 Dose: 40 mg Documented by: Furosemide (Lasix) 20 mg IV BID [facility] Last Admin: 05/30/19 10:18 Dose: 20 mg Documented by: Hydralazine HCl (Apresoline) 10 mg IV Q4HR PRN PRN Reason: Blood Pressure Levothyroxine Sodium (Synthroid) 50 mcg PO DAILY@0600 [facility] Last Admin: 05/30/19 05:37 Dose: 50 mcg Documented by: Meclizine HCl (Antivert) 12.5 mg PO DAILY PRN PRN Reason: Vertigo Nifedipine (Procardia Xl) 60 mg PO DAILY [facility] Last Admin: 05/30/19 10:18 Dose: 60 mg Documented by: Ondansetron HCl (Zofran) 4 mg IV Q8H PRN PRN Reason: Nausea And Vomiting Oxycodone/Acetaminophen (Percocet 5/325) 1 tab PO Q6H PRN PRN Reason: Pain, Moderate (4-6) Pantoprazole Sodium (Protonix) 20 mg PO QDAY [facility] Last Admin: 05/30/19 10:19 Dose: 20 mg Documented by: Sodium Chloride (Sodium Chloride Flush Syringe 10 Ml) 10 ml IV BID [facility] Last Admin: 05/30/19 10:20 Dose: 10 ml Documented by: Sodium Chloride (Sodium Chloride Flush Syringe 10 Ml) 10 ml IV PRN PRN PRN Reason: LINE FLUSH Review of Systems All systems: negative (leg swelling) Exam - Vital Signs Vital signs: Vital Signs Temp Pulse Resp BP 98.4 F 64 16 151/61 05/29/19 17:20 05/29/19 17:20 05/29/19 17:20 05/29/19 17:20 - General Appearance General appearance: well-developed, well-nourished, appears stated age EENT: ATNC, PERRL, mucous membranes moist Neck: Present: neck supple Respiratory: Clear to Ascultation Heart: regular, S1S2 Gastrointestinal: Present: normoactive bowel sounds. Absent: tenderness, distended Integumentary: no rash, warm and dry Neurologic: no focal deficit, no asterixis Musculoskeletal: Present: other (trace pitting edema in BLE) Psychiatric: mood/affect appropriate, cooperative Results - Lab Results 05/30/19 04:18 05/30/19 04:18 Most recent lab results Calcium 8.9 mg/dL (8.4-10.2) 05/30/19 04:18 Magnesium 2.10 mg/dL (1.7-2.3) 05/29/19 18:57 26.4 mg/dL (0.1-20.0) H 05/29/19 18:54 34 mmol/L 05/29/19 18:54 Assessment and Plan Hypervolemic hyponatremia -improving with fluid retsirvion and lasix 20 mg BID - will monitor Na Q8H - avoid correction more than 8-10 mmol/min 24 hours -Strict I's and O's -Fluid Restriction of 1 L CHF -Continue heart failure meds -Cardiology consulted - diuretics as above Sai Bright MD [phone]
[2019-05-30] MEDS: dilTIAZem 30 MG TAB PO SCH ×2 (13:16→22:18)
[2019-05-31] MEDS: dilTIAZem 30 MG TAB PO SCH ×2 (05:21→14:31)
[2019-05-31] MEDS: LEVOTHYROXINE 50 MCG TAB PO SCH (05:21)
--- NOTE | 2019-05-31 08:47 | Progress Note ---
Assessment and Plan Hypervolemic hyponatremia -sodium level cont to improve - can be discharged from renal with fluid restriction and loop diuretics, to be followed in my office within 1 week -Strict I's and O's -Fluid Restriction of 1 L CHF -Continue heart failure meds -Cardiology consulted - diuretics as above Sai Bright MD [phone] Subjective Date of service: 05/31/19 Principal diagnosis: hyponatremia Interval history: denies acute issues, son at bedside, all questions answered Objective - Vital Signs Vital signs: Vital Signs - 12hr 05/31/19 05/31/19 05/31/19 00:00 00:09 04:35 Temperature 97.9 F 97.6 F Pulse Rate 62 63 64 Respiratory 20 20 Rate Blood Pressure 110/47 105/51 O2 Sat by Pulse 92 92 Oximetry - General Appearance General appearance: well-developed, well-nourished EENT: ATNC, PERRL, mucous membranes moist Neck: no JVD, no carotid bruit Respiratory: Present: Clear to Ascultation. Absent: Rales, Ronchi Cardiology: regular, S1S2 Gastrointestinal: normoactive bowel sounds Integumentary: no rash, warm and dry Neurologic: no focal deficit, no asterixis Musculoskeletal: other (no edema in BLE) Psychiatric: mood/affect appropriate, cooperative - Lab 05/30/19 04:18 05/31/19 06:34 Most recent lab results Calcium 8.9 mg/dL (8.4-10.2) 05/30/19 04:18 Magnesium 2.10 mg/dL (1.7-2.3) 05/29/19 18:57 26.4 mg/dL (0.1-20.0) H 05/29/19 18:54 34 mmol/L 05/29/19 18:54 Medications & Allergies - Medications Allergies/Adverse Reactions: Allergies No Known Allergies Allergy (Verified 11/14/18 15:28) Home Medications: Home Medications Medication Instructions Recorded Confirmed Last Taken Type Amiodarone [Cordarone 200 MG TAB] 200 mg PO DAILY #30 tablet 11/27/17 05/29/19 Unknown Rx AtorvaSTATin [Lipitor] 40 mg PO QHS #30 tablet 11/27/17 05/29/19 Unknown Rx Carvedilol [Coreg] 25 mg PO DAILY #30 tablet 11/27/17 05/29/19 Unknown Rx NIFEdipine [Nifedipine ER] 60 mg PO DAILY #30 tab.er.24 11/27/17 05/29/19 Unknown Rx Fluticasone [Flonase] 1 spray IN DAILY PRN 04/30/18 05/29/19 Unknown History Meclizine [Antivert] 12.5 mg PO DAILY PRN 04/30/18 05/29/19 Unknown History Omeprazole 20 mg PO DAILY 04/30/18 05/29/19 Unknown History Potassium Chloride [K-Dur] 1 tab PO DAILY 05/29/19 05/29/19 Unknown History Telmisartan/Hydrochlorothiazid 1 tab PO DAILY 05/29/19 05/29/19 Unknown History [Telmisartan-Hctz 80-12.5 mg Tb] cloNIDine [Catapres] 0.1 mg PO DAILY PRN 05/29/19 05/29/19 Unknown History Active Medications: Generic Name Dose Route Start Last Admin Trade Name Freq PRN Reason Stop Dose Admin Acetaminophen 650 mg 05/29/19 20:20 Tylenol PO Q4H PRN Pain MILD(1-3)/Fever >100.5/SEO Albuterol 2.5 mg 05/29/19 20:20 Proventil IH Q3HRT PRN Shortness Of Breath Atorvastatin Calcium 40 mg 05/29/19 22:00 05/30/19 22:18 Lipitor PO 40 mg QHS [facility] Administration Carvedilol 25 mg 05/30/19 11:00 05/30/19 22:19 Coreg PO Not Given Q12H [facility] Clonidine HCl 0.1 mg 05/29/19 20:24 Catapres PO DAILY PRN Hypertension Diltiazem HCl 30 mg 05/30/19 14:00 05/31/19 05:21 Cardizem PO Not Given Q8HR [facility] Docusate Sodium 100 mg 05/29/19 22:00 05/30/19 22:18 Colace PO 100 mg BID [facility] Administration Enoxaparin Sodium 40 mg 05/30/19 10:00 05/30/19 10:20 Lovenox SUB-Q 40 mg QDAY [facility] Administration Furosemide 20 mg 05/31/19 10:00 Lasix PO QDAY [facility] Hydralazine HCl 10 mg 05/29/19 21:52 Apresoline IV Q4HR PRN Blood Pressure Levothyroxine Sodium 50 mcg 05/30/19 06:00 05/31/19 05:21 Synthroid PO 50 mcg DAILY@0600 [facility] Administration Meclizine HCl 12.5 mg 05/29/19 20:24 Antivert PO DAILY PRN Vertigo Ondansetron HCl 4 mg 05/29/19 20:20 Zofran IV Q8H PRN Nausea And Vomiting Oxycodone/Acetaminophen 1 tab 05/29/19 20:20 05/30/19 17:53 Percocet 5/325 PO 1 tab Q6H PRN Administration Pain, Moderate (4-6) Pantoprazole Sodium 20 mg 05/30/19 10:00 05/30/19 10:19 Protonix PO 20 mg QDAY [facility] Administration Sodium Chloride 10 ml 05/29/19 22:00 05/30/19 22:19 Sodium Chloride Flush Syringe 10 Ml IV 10 ml BID [facility] Administration Sodium Chloride 10 ml 05/29/19 20:20 Sodium Chloride Flush Syringe 10 Ml IV PRN PRN LINE FLUSH
[2019-05-31] MEDS ORDERED: FUROSEMIDE 20 MG TAB PO SCH (10:00)
[2019-05-31] MEDS: ENOXAPARIN 40 MG/0.4 ML INJ SUB-Q SCH (10:01)
[2019-05-31] MEDS: PANTOPRAZOLE 20 MG TAB PO SCH (10:01)
[2019-05-31] MEDS: DOCUSATE SODIUM 100 MG CAP PO SCH (10:02)
[2019-05-31] MEDS: carvediloL 25 MG TAB PO SCH (11:56)
--- NOTE | 2019-05-31 12:01 | Progress Note ---
Assessment and Plan - Patient Problems (1) Chronic atrial fibrillation Current Visit: Yes Status: Acute Plan to address problem: Patient's cardiac problem is chronic atrial fibrillation and sick sinus syndrome, with pacemaker in situ. She has previously been determined a poor risk for oral anticoagulation. Otherwise, there are no active cardiac issues at this time, we will follow intermittently. Subjective Date of service: 05/31/19 Principal diagnosis: hyponatremia Interval history: Patient is comfortable, no cardiac complaints. Objective Vital Signs Temp Pulse Resp BP Pulse Ox 05/31/19 11:56 66 119/50 05/31/19 08:33 97.9 F 80 14 124/52 93 05/31/19 04:35 97.6 F 64 20 105/51 92 05/31/19 00:09 97.9 F 63 20 110/47 92 05/31/19 00:00 62 05/30/19 19:40 97.9 F 72 20 93/47 92 05/30/19 15:40 98.3 F 85 20 96/51 95 05/30/19 13:16 111 H 137/62 05/30/19 13:14 107 H 137/62 91 05/30/19 12:00 107 H - Physical Examination General: No Apparent Distress HEENT: Positive: PERRL Neck: Positive: neck supple Cardiac: Positive: Reg Rate and Rhythm Lungs: Positive: clear to auscultation Neuro: Positive: Grossly Intact Abdomen: Positive: Soft Skin: Positive: Clear Extremities: Absent: edema - Labs and Meds Comprehensive Metabolic Panel 05/30/19 05/30/19 05/31/19 Range/Units 14:47 19:29 06:34 Sodium 127 L 127 L 129 L (137-145) mmol/L
--- NOTE | 2019-05-31 12:38 | Discharge Summary ---
Providers - Providers Date of Admission: 05/29/19 20:20 Date of discharge: 05/31/19 Attending physician: NYA FRENCH 05/29/19 19:01 Consult to Physician [CONS] Urgent Comment: Consulting Provider: JOSS PISANO Physician Instructions: Reason For Exam: hypervolemic hypernatremia 05/29/19 20:20 Consult to Physician [CONS] Routine Comment: Consulting Provider: CHANCE BULLOCK Physician Instructions: Reason For Exam: hx chf, c/o volume overlaod Primary care physician: STUNT PERFORMER Hospitalization Condition: Stable Hospital course: Patient is a 83-year-old Vietanames speaking woman (son Bertin at bedside was the Sustainability Project Coordinator, per patient wishes) with history of hypothyroidism, CHF, hyponatremia, hypertension, cardiomyopathy status post pacemaker who presents [facility] ED with complaints of bilateral lower extremity foot pain, leg pain and swelling for the past 2 days. Discharge Diagnoses: Severe Hyponatremia due to diuretics Micardis -HCT and Spironolactone: reduce lasix Right leg swelling and pain, no DVT on doppler, edema resolved Suspecte acute on chronic diastolic CHF ex: ECHO pending, Cardiology will follow P. Afib with wide complex tachy: Cardiology input noted, no AOC per Cardiology h/o Sick Sinus syndrome with pacemaker Hypertension uncontrolled: increase Coreg CKD 3 stable History of hypothyroidism, -TSH on admission 12.15, -Currently non compliant with meds, -Start Synthroid 50 mcg daily d/c sodium levels near 130 Disposition: DC-01 TO HOME OR SELFCARE Time spent for discharge: 35 minutes Core Measure Documentation - Palliative Care Palliative Care/ Comfort Measures: Not Applicable - Core Measures Any of the following diagnoses?: heart failure - VTE Discharge Requirements Deep Vein Thrombosis/Pulmonary Embolism Present on Admission: No Has pt received <5 days of overlap therapy or INR<2.0: No Anticoagulant overlap therapy prescribed at discharge: No Contraindication No Overlap Therapy order at DC: Not Indicated - Heart Failure Discharge Requirements VIVEK/ARB for LVSD if EF <40%: No Reason for no VIVEK/ARB: Renal impairment Beta franki at discharge: Yes Exam - Physical Exam Narrative exam: Gen: WDWN, NAD, Awake, Alert, Orientated HEENT: NCAT, EOMI, PERRL, OP Clear Neck: supple, no adenopathy, no thyromegaly, no JVD CVS/Heart: RRR, normal S1S2, pulses present bilaterally Chest/Lungs: CTA B, Symmetrical chest expansion, good air entry bilaterally GI/Abdomen: soft, NTND, good bowel sounds, no guarding or rebound /Bladder: no suprapubic tenderness, no CVA or paraspinal tenderness Extermity/Skin: +ble edema, no obvious rash MSK: FROM x 4 Neuro: CN 2-12 grossly intact, no new focal deficits Psych: calm - Constitutional Vitals: Temp Pulse Resp BP Pulse Ox 97.9 F 66 14 119/50 93 05/31/19 08:33 05/31/19 11:56 05/31/19 08:33 05/31/19 11:56 05/31/19 08:33 Plan Activity: up only with assistance, fall precautions, other (no strenous activity unless cleared by Business Asst) Diet: low salt Follow up with: PRIMARY CAREMD [Primary Care Provider] - 3-5 Days CHANCE BULLOCK MD [Staff Physician] - 7 Days JOSS PISANO MD [Staff Physician] - 7 Days Prescriptions: dilTIAZem [Cardizem] 30 mg PO TID #90 tablet Furosemide [Lasix TAB] 20 mg PO QDAY #30 tablet oxyCODONE /ACETAMINOPHEN [Percocet 5/325 mg] 1 tab PO Q6H PRN #15 tablet PRN Reason: Pain , Severe (7-10) Levothyroxine [Synthroid] 50 mcg PO DAILY@0600 #30 tablet
[2019-05-31 14:32] VITALS: BP 119/50
== END 2019-05-31 15:00 | disposition home or self-care (01) | DRG 640 ==
LOC: ED 16:34 → 4A 20:20
PROVIDERS: ADMIT Internal Medicine; ATTEND Internal Medicine
PROC: 4B02XSZ Measurement of Cardiac Pacemaker, External Approach (ICD-10-PCS; principal; 2019-05-30)
DX: E87.1 Hypo-osmolality and hyponatremia (principal); I50.33 Acute on chronic diastolic (congestive) heart failure; I42.9 Cardiomyopathy, unspecified; I13.0 Hypertensive heart and chronic kidney disease with heart failure and stage 1 through stage 4 chronic kidney disease, or unspecified chronic kidney disease; T50.2X5A Adverse effect of carbonic-anhydrase inhibitors, benzothiadiazides and other diuretics, initial encounter; N18.3 Chronic kidney disease, stage 3 (moderate); E86.1 Hypovolemia; I48.0 Paroxysmal atrial fibrillation; E03.8 Other specified hypothyroidism; Z95.5 Presence of coronary angioplasty implant and graft; I25.2 Old myocardial infarction; Y92.098 Other place in other non-institutional residence as the place of occurrence of the external cause
CPT/HCPCS: 36415; 71045; 80048; 80053; 81001; 82550; 82570; 83735; 83880; 83935; 84295; 84300; 84439; 84443; 84550; 85025; 85610; 85730; 87116; 93005; 93010; 93306; 96374; G0378; A9270-GY; J1650; J1940; J3246